=== PATIENT | female | born 1995 | race Caucasian/White ===

== ENCOUNTER 2023-12-02 08:12 | Day surgery (SDC) | payer OTHER, SELFPAY ==
--- OUTSIDE RECORDS SUMMARY | 2023-12-02 08:16 | XMS_ITS | Clinical Summary ---
Author Name Unknown Organization [facility] Address [address] [place] [address] Care Team Providers Care Cover Creaser Name Role Phone Unavailable Primary Care Provider Unavailabl e Source Comments Patient records contain information from all sites at [facility]. For routine questions regarding patient records, call [phone] during business hours, M-F 8:00 AM - 5:00 PM Central Time. Record requests for emergency care only can be directed to [phone] at any time.[facility] Allergies No known active allergies Medications Medication Sig Dispensed Refills Start Date End Date Status rizatriptan (MAXALT) 5 mg tablet Take 5 mg by mouth every 2 (two) hours as needed. 10/14/2021 Active albuterol 90 mcg/actuation inhaler INHALE 2 PUFFS BY MOUTH THREE TIMES DAILY FOR COUGH DIRECTED 03/09/2023 Active medroxyPROGESTERone (PROVERA) 10 mg tabletIndications:Ol igomenorrhea Take 1 tablet (10 mg total) by mouth daily for 10 days. 10 tablet 07/28/2023 Active Active Problems Problem Noted Date Diagnosed Date Pain Epigastric 07/28/2023 Oligomenorrhea 07/28/2023 Overview: Oligomenorrhea and acne, but no other biochemical evidence of hyperandrogenism in the past. TSH, total testosterone, SHBG, prolactin, and 17-OH progesterone all normal in the past. Day 3 FSH and estradiol also returned normal. We will also plan to day 21 progesterone to evaluate for ovulation, and this is scheduled. If this is not ovulatory, we will repeat it weekly until it is ovulatory. She does desire and has not conceived over the course of years without contraception, other than recently when she had a miscarriage. We can discuss options for fertility evaluation and treatment going forward once we have the progesterone results back. We would also discuss evaluation for male factor. Mass Uterus 07/28/2023 Overview: Thickening of the endometrium in the lower uterine segment noted on 2 prior ultrasounds, today the endometrium appears normal early in her cycle, but the endocervical canal appears thickened and diffusely heterogeneous and non- vascular. ECC was performed to further evaluate this. We will be in touch with her with results. \ Pain Left Lower Quadrant 07/28/2023 Overview: Exam is normal today and without tenderness. Testing for gonorrhea and Chlamydia was performed today. Ultrasound will be repeated on days 5-10 of her cycle to evaluate this.. Polycystic Ovary Syndrome 06/17/2022 Overview: Diagnosed by gynecology based upon oligomenorrhea and ovaries with multiple cysts on ultrasound. She also has acne but no hirsutism. Total testosterone and sex hormone binding globulin were normal when assessed in the past. Ovaries do not meet criteria for PCOS on ultrasound today. She has normal follicles but too many or a string of pearls appearance, and the ovaries are normal in size. Migraine Headache 07/04/2014 Adjustment Disorder With Anxious Mood 09/12/2010 Encounters Date Type Department Care Team Description 10/11/2023 3:15 PM GRAIN MILL WORKER - 10/11/2023 11:59 PM GRAIN MILL WORKER Hospital Encounter Department of Laboratory Medicine in [address] [address] Sushila Harp M.D. Oligomenorrhea Discharge Disposition: Home or Self Care 10/04/2023 12:50 PM GRAIN MILL WORKER - 10/04/2023 11:59 PM GRAIN MILL WORKER Hospital Encounter Department of Laboratory Medicine in [address] [address] Sushila Harp M.D. Oligomenorrhea Discharge Disposition: Home or Self Care 09/21/2023 8:30 AM GRAIN MILL WORKER Ancillary Procedure Department of Obstetrics and Gynecology in [place], [place] [address] [place] [address] Sushila Harp M.D. Mass Uterus Discharge Disposition: Home or Self Care 09/21/2023 8:30 AM GRAIN MILL WORKER Office Visit Department of Obstetrics and Gynecology in [place], [place] [address] [place] [address] Sushila Harp M.D. Mass Uterus (Primary Dx); Oligomenorrhea; Polycystic Ovary Syndrome Discharge Disposition: Home or Self Care 09/14/2023 3:50 PM GRAIN MILL WORKER - 09/14/2023 11:59 PM GRAIN MILL WORKER Hospital Encounter Department of Laboratory Medicine in [place], [place] [address] [place] [address] Sushila Harp M.D. Oligomenorrhea Discharge Disposition: Home or Self Care from Last 3 Months Immunizations Name Administration Dates Next Due 4vHPV (discontinued) 05/02/2008,01/02/2008,10/27 DTaP (Infanrix, [employer]) 12/04/1999,06/08/1996 DTaP / Hib 1995,1995,1995 H1N1 All Forms 07/10/2009 H1N1 Inj 07/10/2009 HepA Adult 01/05/2017 HepA Pediatric/Adolescent 07/22/2011 HepB Pediatric/Adolescent 1995,1995, 1995 Influenza (IM) Preservative Free 07/07/2011 Influenza TIV (IM) 07/16/2012, 1,06/23/2010,2008,06/05/2008,06/22/2007 Influenza, Seasonal, Injectable 07/16/20 12,06/23/2010,05/08/2009,2007,06/22/2007,09/29/2006 MCV4 (Menactra)(Discontinued) 04/06/2006 MCV4 (Menveo) 07/22/2011 MMR 12/04/1999,06/08/1996 OPV 06/08/1996, 6,1995,1994 Td Preservative Free (TENIVA C, DECAVAC) 01/05/2017 Tdap 04/06/2006 influenza vaccine quad (FLUZONE/FLUARIX) (6 months and older)(PF) 07/04/2014 Family History Medical History Relation Name Comments Hypertension Father Hypertension Maternal Grandmother Diabetes Mother Heart attack Mother Hyperlipidemia Mother Hypertension Mother Heart attack Mother's Brother 1 Heart attack Mother's Brother 2 Relation Name Status Comments Father Maternal Grandmother Mother Mother's Brother 1 Alive Mother's Brother 2 Alive Social History Tobacco Use Types Packs/Day Years Used Date Smoking Tobacco: Never Smokeless Tobacco: Never Tobacco Cessation:Counseling Given: Not Answered Alcohol Use Standard Drinks/Week Comments Yes 0 (1 standard drink = 0.6 oz pur e alcohol) occasional [employer] Utilities Answer Date Recorded In the past 12 months has th e [employer], gas, oil, or water [employer] threatened to shut off services in your home? No 09/16/2023 Exercise Vital Sign Answer Date Recorde d On average, how many days pe r week do you engage in moderate to strenuous exercise (like a brisk walk)? 6 days 09/16/2023 On average, how many minutes do you engage in exercise at this level? 40 min 09/16/2023 Hunger Vital Sign Answer Date Recorded Within the past 12 months, y ou worried that your food would run out before you got the money to buy more. Sometimes true Within the past 12 months, t he food you bought just didn't last and you didn't have money to get more. Sometimes true 08/2023 PRAPARE - Transportation Answer Date Re corded In the past 12 months, has l ack of transportation kept you from medical appointments or from getting medications? No 08/2023 In the past 12 months, has l ack of transportation kept you from meetings, work, or from getting things needed for daily living? No 09/16/2023 Nutrition Answer Date Recorded Nutrition: EVOO Fat Source Unknown 09/16 On average, how many serving s of fruits and vegetables do you eat per day (serving size is equal to 1 cup or approximately the size of a tennis ball)? 0-2 09/16/2023 Dental Answer Date Recorded Dental: Regular Dentist No 09/16/19 Employment Answer Date Recorded Employment status Employed and actively working without restrictions 09/16/2023 Housing Stability Answer Date Recorded What is your living situation today? I have a [facility] place to live 09/16/2023 Sex and Gender Information Value Date Recorded Sex Assigned at Female 09/16/2023 8:08 PM GRAIN MILL WORKER Gender Identity Female 09/16/2023 8:08 PM GRAIN MILL WORKER Sexual Orientation Straight 09/16/2023 8: 08 PM GRAIN MILL WORKER Last Filed Vital Signs Vital Sign Reading Time Taken Comments Blood Pressure 106/78 09/21/2023 8:20 AM GRAIN MILL WORKER Pulse - - Temperature - - Respiratory Rate - - Oxygen Saturation - - Inhaled Oxygen Concentration - - Weight 66.9 kg (147 lb 7.8 oz) 09/21/2023 8:20 A M GRAIN MILL WORKER Height 164 cm (5' 4.57) 07/28/2023 8:31 AM GRAIN MILL WORKER Body Mass Index 24.87 07/28/2023 8:31 AM GRAIN MILL WORKER Plan of Treatment Health Maintenance Due Date Last Done Comments HIV Screening 1995 Hepatitis C Screening 1995 Hepatitis B Vaccines (4 of 4 - 4-dose series) 1995 1995, 1995, 1995 COVID-19 Vaccine ( season) 2023 Influenza Vaccine (#1) 2023 4, 07/16/2012, 07/16/2012, Additional history exists Depression Screening (Annual PHQ-2) 08/16/2023 Cervical Cancer Screening 07/28/2026 07/28/2023 DTaP,Tdap,and Td Vaccines (8 - Td or Tdap) 01/05/2027 01/05/2017, 04/06/2006, 12/04/1999, Additional history exists HPV Vaccines Completed 05/02/2008, 12/14, 10/28/2007 Hepatitis A Vaccines Completed 01/05/2017, 07/22/20 11 Pneumococcal vaccine (0-64 years) Aged Out No longer eligible based on patient's age to complete this topic Procedures Procedure Name Priority Date/Time Associated Diagnosis Comments PROGESTERONE, S Routine 10/11/2023 3:24 PM GRAIN MILL WORKER Oligomenorrhea PROGESTERONE, S Routine 10/04/2023 12:56 PM GRAIN MILL WORKER Oligomenorrhea SURGICAL PATHOLOGY Routine 09/21/2023 9: 15 AM GRAIN MILL WORKER Mass Uterus US PELVIS TRANSVAGINAL RAD - Routine (most inpatients and all outpatients) 09/21/2023 8:56 AM GRAIN MILL WORKER Mass Uterus NV CURETTAGE ENDOCERVICAL Routine 09/21/2023 8:30 AM GRAIN MILL WORKER Mass Uterus ESTRADIOL, RAPID, S Routine 09/14/2023 3 :58 PM GRAIN MILL WORKER Oligomenorrhea FOLLICLE-STIM HORMONE (FSH), S Routine 09/14/2023 3:58 PM GRAIN MILL WORKER Oligomenorrhea THINPREP SCREEN HPV REFLEX Routine 07/28/2023 10:08 AM GRAIN MILL WORKER Pap Smear Examination from Last 3 Months or Most Recently Relevant to Health Maintenance Results * Progesterone Level (10/11/2023 3:24 PM GRAIN MILL WORKER) Only the most recent of2 resultswithin the time period is included. Progesterone, S 21 See Note* ng/mL 10/12/2023 1:15 PM GRAIN MILL WORKER DTL Comment: Reference intervals are central 90th % of healthy population. Follicular phase: <=0.89 ng/mL Ovulation: <=12 ng/mL Luteal phase: 1.8-24 ng/ml Post-menopausal: <0.20 ng/mL 1st Trimester: 11-44 ng/mL 2nd Trimester: 25-83 ng/mL 3rd Trimester: 58-214 ng/mL Blood (Blood, Venous) 10/11/2023 3:24 PM GRAIN MILL WORKER 10/12/2023 12:46 PM GRAIN MILL WORKER Sushila Harp M.D. LAB BLOOD ADD-O N [facility] [address] [place] [address], [facility] DTL [facility] [address] * Surgical Pathology (09/21/2023 9:15 AM GRAIN MILL WORKER) 09/27/2023 2:04 PM GRAIN MILL WORKER MKTO Report electronically signed by Ander Be MD 09/27/2023 2:04 PM GRAIN MILL WORKER MKTO Specimen Received A. Endocervical curettings cervix (REVISED) 09/27/2023 2:04 PM GRAIN MILL WORKER MKTO Comment: REVISED RESULTS ----PREVIOUSLY REPORTED ---- A. ??Endometrial biopsy, Flagged as: ?? (Reported 09/23/2023 10:10) Clinical History Uterine mass 2023 2:04 PM GRAIN MILL WORKER MKTO Gross Description Submitted as ??endocervix ??curettage are mccoy tissue fragments and mucoid debris filtering to 1.0 cm. ??ESB, one block. ?? BHC;pp 09/27/2023 2:04 PM GRAIN MILL WORKER MKTO Comment: REVISED RESULTS ----PREVIOUSLY REPORTED ---- Submitted as endometrium curettage are mccoy tissue fragments and mucoid debris filtering to 1.0 cm. ??ESB, one block. BHC;pp, Flagged as: ??(Reported 09/23/2023 10:10) Interpretation FINAL DIAGNOSIS REVISION DESCRIPTION: ?Report revised to correct specimen site from endometrium to cervix / endocervix. Underlining in the PDF report indicates revision. Endocervix, curettings: ??Proliferative endometrium. There is no endocervical tissue. 09/27/2023 2:04 PM GRAIN MILL WORKER MKTO Comment: REVISED RESULTS ----PREVIOUSLY REPORTED ---- FINAL DIAGNOSIS Endometrium, curettings: ??Proliferative endometrium., Flagged as: ??(Reported 09/23/2023 10:10) Tissue 09/21/2023 9:15 AM GRAIN MILL WORKER 09/22/2023 6:14 AM GRAIN MILL WORKER Sushila Harp M.D. LAB SURG PATH O RDERABLES [facility] [address] [place] [address], [facility] [address] [facility] [address] [place] [address] * US Pelvis Transvaginal (09/21/2023 8:56 AM GRAIN MILL WORKER) Anatomical Region Laterality Modality Pelvis, Ultrasound RST LOS, Ultrasound ARZ LOS, Ultrasound FLA LOS N/A Ultrasound Impressions 09/21/2023 6:49 PM GRAIN MILL WORKER Endocervix appears heterogeneous and thickened without discrete masses. ??Otherwise normal pelvic ultrasound. ??Endometrium appears thin and homogeneous. ??Exam performed late in the cycle for evaluation for polycystic ovarian syndrome, as follicles >10 mm are noted. Narrative 09/21/2023 6:49 PM GRAIN MILL WORKER EXAM: US PELVIS TRANSVAGINAL COMPARISON: TECHNIQUE: Transvaginal. Transvaginal exam performed to better visualize the uterus and/or adnexal regions. FINDINGS: Uterus: 3.1 cm x 3.8 cm x 7.1 cm. ??Endocervical canal appears diffusely heterogeneous with anechoic cystic appearing areas and echogenic areas. ??It appears thickened but avascular with no measurable masses identified Myometrium: Normal. Endometrium: Normal. Thickness: 4 mm Right ovary: Normal. ??Ovarian volume: 8 cc. ??11 subcentimeter (2-9 mm) follicles present within the ovary. A follicle >10 mm present. Left ovary: Normal. ??Ovarian volume: 9 cc. Intraperitoneal Fluid: None. Procedure Note Sushila Harp M.D. - 09/21/2023 EXAM: US PELVIS TRANSVAGINAL COMPARISON: TECHNIQUE: Transvaginal. Transvaginal exam performed to better visualizethe uterus and/or adnexal regions. FINDINGS: Uterus: 3.1 cm x 3.8 cm x 7.1 cm. Endocervical canal appears diffuselyheterogeneous with anechoic cystic appearing areas and echogenic areas.It appears thickened but avascular with no measurable masses identified Myometrium: Normal. Endometrium: Normal. Thickness: 4 mm Right ovary: Normal. Ovarian volume: 8 cc. 11 subcentimeter (2-9 mm)follicles present within the ovary. A follicle >10 mm present. Left ovary: Normal. Ovarian volume: 9 cc. Intraperitoneal Fluid: None. IMPRESSION: Endocervix appears heterogeneous and thickened without discrete masses.Otherwise normal pelvic ultrasound. Endometrium appears thin andhomogeneous. Exam performed late in the cycle for evaluation forpolycystic ovarian syndrome, as follicles >10 mm are noted. Sushila Harp M.D. IMG US PROCEDUR ES * NV CURETTAGE ENDOCERVICAL (09/21/2023 8:30 AM GRAIN MILL WORKER) Narrative MMODAL - 09/21/2023 8:30 AM GRAIN MILL WORKER Sushila Harp M.D. ? 09/21/2023 ??9:22 AM Colposcopy Performed by: Sushila Harp M.D. Authorized by: Sushila Harp M.D. ?? Care team members present 1. Sushila Harp M.D. 2. Marlys Carreon L.P.N. PROCEDURE DETAILS Procedure: ECC ?? Acetic Acid applied: no ?? Iodine (Lugol's) solution applied: no ?? Location of biopsies: cervix ?? CONSENT Consent obtained: verbal Consent given by: patient [employer] All relevant documentation and testing were reviewed and available. All required blood products, implants, devices and or special equipment were made available as applicable. Pre-procedure verification was conducted and the correct site was marked if required. A fire risk assessment was done as applicable. The procedural time-out to verify correct patient, correct side/site, and procedure was conducted prior to performing the procedure and confirmed in a procedural pause. PRE-PROCEDURE DETAILS Procedure purpose: diagnostic Indications: other (specify) Other indications: endocervical thickening on ultrasound Appropriate hand hygiene, gown, cap, mask, protective eyewear, sterile gloves, skin preparation, sterile drape, and strict aseptic technique were utilized as applicable for the procedure.: yes ?? SEDATION / ANESTHESIA Anesthesia method: none POST-PROCEDURE DETAILS ?? Complications: no apparent complications Comments This was an ECC only, no colposcopy was performed. Sushila Harp M.D. PROCEDURE/MINOR SURGICAL ORDERABLES MMODAL NA * Estradiol, Rapid, Immunoassay - (for rapid assessment of ovarian status) (09/14/2023 3:58 PM GRAIN MILL WORKER) Estradiol Rapid, Immunoassay, S 35 pg/mL 09/14/2023 8:36 PM GRAIN MILL WORKER MKTO Comment: Biotin has been identified by the iron worker as a potential interfering substance. Higher concentrations of biotin may be found in multivitamins, hair/nail supplements, and workout supplements. If the result does not match clinical observations, repeat testing after patient refrains from the use of supplements for at least 12 hours. ----REFERENCE VALUE---- Premenopausal: 15-350 pg/mL Postmenopausal: <10 pg/mL Estradiol concentrations vary widely throughout the menstrual cycle. Blood (Blood, Venous) 09/14/2023 3:58 PM GRAIN MILL WORKER 09/14/2023 7:48 PM GRAIN MILL WORKER Sushila Harp M.D. LAB BLOOD ADD-O N Performing Organization Address City/[facility] Co de Phone Number [facility] [address] [place] [address] [place] [address] * Follicle-Stimulating Hormone (FSH), Serum (09/14/2023 3:58 PM GRAIN MILL WORKER) Follicle-Stim Hormone (FSH), S 6.3 IU/L 09/15/2023 12:45 PM GRAIN MILL WORKER DTL Comment: ----REFERENCE VALUE---- Premenopausal: 2.9-14.6 IU/L (Follicular) 4.7-23.2 IU/L (Midcycle) 1.4-8.9 IU/L (Luteal) Postmenopausal: 16.0-157.0 IU/L Blood (Blood, Venous) 09/14/2023 3:58 PM GRAIN MILL WORKER 09/15/2023 12:13 PM GRAIN MILL WORKER Sushila Harp M.D. LAB BLOOD ADD-O N [facility] [address] [place] [address], [place] DTL [facility] [address] [place] [address] * ThinPrep Screen HPV Reflex (07/28/2023 10:08 AM GRAIN MILL WORKER) 08/02/2023 3:04 PM GRAIN MILL WORKER [facility] Report electronically signed by LINNEA Swift (ASCP) I verify that I have examined all relevant slides/materials for the specimen(s) and rendered or confirmed the diagnosis. 08/02/2023 3:04 PM GRAIN MILL WORKER [facility] Gross Description Received specimen in a ThinPrep vial. 08/02/2023 3:04 PM GRAIN MILL WORKER [facility] Pap Test Source Cervical/Endocervi elizabeth 08/02/2023 3:04 PM GRAIN MILL WORKER [facility] Clinical History routine 08/02/20 3:04 PM GRAIN MILL WORKER [facility] Menstrual Status(LMP, PM, ) lmp 08/02/2023 3:04 PM GRAIN MILL WORKER [facility] Hormone Therapy/Contracep tives None/Not known 08/02/2023 3:04 PM GRAIN MILL WORKER [facility] Interpretation Cervical/Endocervi elizabeth ??(ThinPrep): Satisfactory for Evaluation Partially obscuring inflammation Negative for Intraepithelial Lesion or Malignancy 08/02/2023 3:04 PM GRAIN MILL WORKER [facility] Thin Prep Vial (Cervix/Endocerv ix) 07/28/2023 10:08 AM GRAIN MILL WORKER 07/29/2023 10:57 AM GRAIN MILL WORKER Sushila Harp M.D. LAB PAP PATHDX ORDERABLES [facility] [address] [place] [address], [place] [facility] [address] [facility] [address] [place] [address] from Last 3 Months or Most Recently Relevant to Health Maintenance
--- OUTSIDE RECORDS SUMMARY | 2023-12-02 08:16 | XMS_ITS | Encounter Summary ---
Author Name Unknown Organization [facility] Address [address] [place] [address] Care Team Providers Care Airways Control Specialist Name Role Phone Unavailable Primary Care Provider Unavailabl e Encounter Details Date Type Department Care Team (Latest Contact Info) Description 10/11/2023 3:15 PM LENS CLEANER - 10/11/2023 11:59 PM LENS CLEANER Hospital Encounter Department of Laboratory Medicine in [place], [place] [address] [place] [address] Sushila Harp M.D. [address], [place] [phone] Oligomenorrhea Discharge Disposition: Home or Self Care Social History Tobacco Use Types Packs/Day Years Used Date Smoking Tobacco: Never Smokeless Tobacco: Never Alcohol Use Standard Drinks/Week Comments Yes 0 (1 standard drink = 0.6 oz pur e alcohol) occasional [facility] Utilities Answer Date Recorded In the past 12 months has [employer], gas, oil, or water [employer] threatened to shut off services in your [...] your living situation today? I have a [facility] place to live 09/16/2023 Sex and Gender Information Value Date Recorded Sex Assigned at Female 09/16/2023 8:08 PM LENS CLEANER Gender Identity Female 09/16/2023 8:08 PM LENS CLEANER Sexual Orientation Straight 09/16/2023 8: 08 PM LENS CLEANER documented as of this encounter Medications at Time of Discharge Medication Sig Dispensed Refills Start Date End Date albuterol 90 mcg/actuation inhaler INHALE 2 PUFFS BY MOUTH THREE TIMES DAILY FOR COUGH DIRECTED 03/09/2023 rizatriptan (MAXALT) 5 mg tablet Take 5 mg by mouth every 2 (two) hours as needed. 10/14/2021 documented as of this encounter Plan of Treatment Not on file documented as of this encounter Procedures Procedure Name Priority Date/Time Associated Diagnosis Comments PROGESTERONE, S Routine 10/11/2023 3:24 PM LENS CLEANER Oligomenorrhea documented in this encounter Results * Progesterone Level (10/11/2023 3:24 PM LENS CLEANER) Progesterone, S 21 See Note* ng/mL 10/12/2023 1:15 PM LENS CLEANER DTL Comment: Reference intervals are central 90th % of healthy population. Follicular phase: <=0.89 ng/mL Ovulation: <=12 ng/mL Luteal phase: 1.8-24 ng/ml Post-menopausal: <0.20 ng/mL 1st Trimester: 11-44 ng/mL 2nd Trimester: 25-83 ng/mL 3rd Trimester: 58-214 ng/mL Blood (Blood, Venous) 10/11/2023 3:24 PM LENS CLEANER 10/12/2023 12:46 PM LENS CLEANER Sushila Harp M.D. LAB BLOOD ADD-O N [place] [address] [place] [address], [facility] DTL [facility] [address] [place] [address] documented in this encounter Visit Diagnoses Diagnosis Oligomenorrhea documented in this encounter
--- OUTSIDE RECORDS SUMMARY | 2023-12-02 08:16 | XMS_ITS | Referral Summary ---
Author Name Unknown Organization [facility] Address [address] [place] [address] Care Team Providers Care Tape Editor Name Role Phone Unavailable Primary Care Provider Unavailabl e Source Comments Patient records contain information from all sites at [facility]. For routine questions regarding patient records, call [phone] during business hours, M-F 8:00 AM - 5:00 PM Central Time. Record requests for emergency care only can be directed to [phone] at any time.[facility] Encounters Date Type Department Care Team Description 10/11/2023 3:15 PM HIGH SCHOOL ADMISSIONS REPRESENTATIVE - 10/11/2023 11:59 PM HIGH SCHOOL ADMISSIONS REPRESENTATIVE Hospital Encounter Department of Laboratory Medicine in [address] [address] Sushila Harp M.D. Oligomenorrhea Discharge Disposition: Home or Self Care 10/04/2023 12:50 PM HIGH SCHOOL ADMISSIONS REPRESENTATIVE - 10/04/2023 11:59 PM HIGH SCHOOL ADMISSIONS REPRESENTATIVE Hospital Encounter Department of Laboratory Medicine in [address] [phone] Sushila Harp M.D. Oligomenorrhea Discharge Disposition: Home or Self Care 09/21/2023 8:30 AM HIGH SCHOOL ADMISSIONS REPRESENTATIVE Ancillary Procedure Department of Obstetrics and Gynecology in [address] [phone] Sushila Harp M.D. Mass Uterus Discharge Disposition: Home or Self Care 09/21/2023 8:30 AM HIGH SCHOOL ADMISSIONS REPRESENTATIVE Office Visit Department of Obstetrics and Gynecology in [place], [place] [address] [facility] [place] [address] Sushila Harp M.D. Mass Uterus (Primary Dx); Oligomenorrhea; Polycystic Ovary Syndrome Discharge Disposition: Home or Self Care 09/14/2023 3:50 PM HIGH SCHOOL ADMISSIONS REPRESENTATIVE - 09/14/2023 11:59 PM HIGH SCHOOL ADMISSIONS REPRESENTATIVE Hospital Encounter Department of Laboratory Medicine in [place], [place] [address] [facility] [place] [phone] Sushila Harp M.D. Oligomenorrhea Discharge Disposition: Home or Self Care from Last 3 Months Allergies No known active allergies Medications Medication [...] 07/04/2014 Adjustment Disorder With Anxious Mood 09/12/2010 Immunizations Name Administration Dates Next Due 4vHPV [...] quad (FLUZONE/FLUARIX) (6 months and older)(PF) 07/04/2014 Social History Tobacco Use Types Packs/Day Years Used Date Smoking Tobacco: Never Smokeless Tobacco: Never Tobacco Cessation:Counseling Given: Not Answered Alcohol Use Standard Drinks/Week Comments Yes 0 (1 standard drink = 0.6 oz pur e alcohol) occasional [facility] Utilities Answer Date Recorded In the past 12 months has th e [employer], gas, oil, or water [employer] threatened to shut off services in your [...] Date Recorded Dental: Regular Dentist No 09/16/19 24 Employment Answer Date Recorded Employment status Employed and actively working without restrictions 09/16/2023 Housing Stability Answer Date Recorded What is your living situation today? I have a [facility] place to live 09/16/2023 Sex and Gender Information Value Date Recorded Sex Assigned at Female 09/16/2023 8:08 PM HIGH SCHOOL ADMISSIONS REPRESENTATIVE Gender Identity Female 09/16/2023 8:08 PM HIGH SCHOOL ADMISSIONS REPRESENTATIVE Sexual Orientation Straight 09/16/2023 8: 08 PM HIGH SCHOOL ADMISSIONS REPRESENTATIVE Last Filed Vital Signs Vital Sign Reading Time Taken Comments Blood Pressure 106/78 09/21/2023 8:20 AM HIGH SCHOOL ADMISSIONS REPRESENTATIVE Pulse - - Temperature - - Respiratory Rate - - Oxygen Saturation - - Inhaled Oxygen Concentration - - Weight 66.9 kg (147 lb 7.8 oz) 09/21/2023 8:20 A M HIGH SCHOOL ADMISSIONS REPRESENTATIVE Height 164 cm (5' 4.57) 07/28/2023 8:31 AM HIGH SCHOOL ADMISSIONS REPRESENTATIVE Body Mass Index 24.87 07/28/2023 8:31 AM HIGH SCHOOL ADMISSIONS REPRESENTATIVE Plan of Treatment Not on file Procedures Procedure Name Priority Date/Time Associated Diagnosis Comments PROGESTERONE, S Routine 10/11/2023 3:24 PM HIGH SCHOOL ADMISSIONS REPRESENTATIVE Oligomenorrhea PROGESTERONE, S Routine 10/04/2023 12:56 PM HIGH SCHOOL ADMISSIONS REPRESENTATIVE Oligomenorrhea SURGICAL PATHOLOGY Routine 09/21/2023 9: 15 AM HIGH SCHOOL ADMISSIONS REPRESENTATIVE Mass Uterus US PELVIS TRANSVAGINAL RAD - Routine (most inpatients and all outpatients) 09/21/2023 8:56 AM HIGH SCHOOL ADMISSIONS REPRESENTATIVE Mass Uterus [place] CURETTAGE ENDOCERVICAL Routine 09/21/2023 8:30 AM HIGH SCHOOL ADMISSIONS REPRESENTATIVE Mass Uterus ESTRADIOL, RAPID, S Routine 09/14/2023 3 :58 PM HIGH SCHOOL ADMISSIONS REPRESENTATIVE Oligomenorrhea FOLLICLE-STIM HORMONE (FSH), S Routine 09/14/2023 3:58 PM HIGH SCHOOL ADMISSIONS REPRESENTATIVE Oligomenorrhea THINPREP SCREEN HPV REFLEX Routine 07/28/2023 10:08 AM HIGH SCHOOL ADMISSIONS REPRESENTATIVE Pap Smear Examination from Last 3 Months or Most Recently Relevant to Health Maintenance Results * Progesterone Level (10/11/2023 3:24 PM HIGH SCHOOL ADMISSIONS REPRESENTATIVE) Only the most recent of2 resultswithin the time period is included. Progesterone, S 21 See Note* ng/mL 10/12/2023 1:15 PM HIGH SCHOOL ADMISSIONS REPRESENTATIVE DTL Comment: Reference intervals are central 90th % of healthy population. Follicular phase: <=0.89 ng/mL Ovulation: <=12 ng/mL Luteal phase: 1.8-24 ng/ml Post-menopausal: <0.20 ng/mL 1st Trimester: 11-44 ng/mL 2nd Trimester: 25-83 ng/mL 3rd Trimester: 58-214 ng/mL Blood (Blood, Venous) 10/11/2023 3:24 PM HIGH SCHOOL ADMISSIONS REPRESENTATIVE 10/12/2023 12:46 PM HIGH SCHOOL ADMISSIONS REPRESENTATIVE Sushila Harp M.D. LAB BLOOD ADD-O N [facility] [address] [place] [address], [facility] [address] [place] [address] * Surgical Pathology (09/21/2023 9:15 AM HIGH SCHOOL ADMISSIONS REPRESENTATIVE) 09/27/2023 2:04 PM HIGH SCHOOL ADMISSIONS REPRESENTATIVE MKTO Report electronically signed by Ander Be MD 09/27/2023 2:04 PM HIGH SCHOOL ADMISSIONS REPRESENTATIVE MKTO Specimen Received A. Endocervical curettings cervix (REVISED) 09/27/2023 2:04 PM HIGH SCHOOL ADMISSIONS REPRESENTATIVE MKTO Comment: REVISED RESULTS ----PREVIOUSLY REPORTED ---- A. ??Endometrial biopsy, Flagged as: ?? (Reported 09/23/2023 10:10) Clinical History Uterine mass 2023 2:04 PM HIGH SCHOOL ADMISSIONS REPRESENTATIVE MKTO Gross Description Submitted as ??endocervix ??curettage are mccoy tissue fragments and mucoid debris filtering to 1.0 cm. ??ESB, one block. ?? BHC;pp 09/27/2023 2:04 PM HIGH SCHOOL ADMISSIONS REPRESENTATIVE MKTO Comment: REVISED RESULTS ----PREVIOUSLY REPORTED ---- [...] is no endocervical tissue. 09/27/2023 2:04 PM HIGH SCHOOL ADMISSIONS REPRESENTATIVE MKTO Comment: REVISED RESULTS ----PREVIOUSLY REPORTED ---- FINAL DIAGNOSIS Endometrium, curettings: ??Proliferative endometrium., Flagged as: ??(Reported 09/23/2023 10:10) Tissue 09/21/2023 9:15 AM HIGH SCHOOL ADMISSIONS REPRESENTATIVE 09/22/2023 6:14 AM HIGH SCHOOL ADMISSIONS REPRESENTATIVE Sushila Harp M.D. LAB SURG PATH O RDERABLES [facility] [address] [place] [address], [facility] MKTO [address] [place] [address] * US Pelvis Transvaginal (09/21/2023 8:56 AM HIGH SCHOOL ADMISSIONS REPRESENTATIVE) Anatomical Region Laterality Modality Pelvis, Ultrasound RST LOS, Ultrasound ARZ LOS, Ultrasound FLA LOS N/A Ultrasound Impressions 09/21/2023 6:49 PM HIGH SCHOOL ADMISSIONS REPRESENTATIVE Endocervix appears heterogeneous and thickened without discrete masses. ??Otherwise normal pelvic ultrasound. ??Endometrium appears thin and homogeneous. ??Exam performed late in the cycle for evaluation for polycystic ovarian syndrome, as follicles >10 mm are noted. Narrative 09/21/2023 6:49 PM HIGH SCHOOL ADMISSIONS REPRESENTATIVE EXAM: US PELVIS TRANSVAGINAL COMPARISON: TECHNIQUE: Transvaginal. [...] >10 mm are noted. Sushila Harp M.D. G US PROCEDUR ES * [place] CURETTAGE ENDOCERVICAL (09/21/2023 8:30 AM HIGH SCHOOL ADMISSIONS REPRESENTATIVE) Narrative MMODAL - 09/21/2023 8:30 AM HIGH SCHOOL ADMISSIONS REPRESENTATIVE Sushila Harp M.D. ? 09/21/2023 ??9:22 AM Colposcopy Performed by: Sushila Harp M.D. Authorized by: Sushila Harp M.D. ?? Care team members present 1. Sushila Harp M.D. 2. Marlys Carreon L.PPravin PROCEDURE DETAILS Procedure: ECC ?? Acetic Acid [...] performed. Sushila Harp M.D. PROCEDURE/MINOR SURGICAL ORDERABLES Performing Organization Address [facility] de Phone Number MMODAL NA * Estradiol, Rapid, Immunoassay - (for rapid assessment of ovarian status) (09/14/2023 3:58 PM HIGH SCHOOL ADMISSIONS REPRESENTATIVE) Estradiol Rapid, Immunoassay, S 35 pg/mL 09/14/2023 8:36 PM HIGH SCHOOL ADMISSIONS REPRESENTATIVE MKTO Comment: Biotin has been identified by the sign language instructor as a potential interfering substance. Higher concentrations [...] cycle. Blood (Blood, Venous) 09/14/2023 3:58 PM HIGH SCHOOL ADMISSIONS REPRESENTATIVE 09/14/2023 7:48 PM HIGH SCHOOL ADMISSIONS REPRESENTATIVE Sushila Harp M.D. LAB BLOOD ADD-O N Performing Organization Address [facility] Co de Phone Number [facility] [address] [place] [address], [place] MKTO [facility] [place] [address] [place] [address] * Follicle-Stimulating Hormone (FSH), Serum (09/14/2023 3:58 PM HIGH SCHOOL ADMISSIONS REPRESENTATIVE) Follicle-Stim Hormone (FSH), S 6.3 IU/L 09/15/2023 12:45 PM HIGH SCHOOL ADMISSIONS REPRESENTATIVE DTL Comment: ----REFERENCE VALUE---- Premenopausal: 2.9-14.6 IU/L (Follicular) 4.7-23.2 IU/L (Midcycle) 1.4-8.9 IU/L (Luteal) Postmenopausal: 16.0-157.0 IU/L Blood (Blood, Venous) 09/14/2023 3:58 PM HIGH SCHOOL ADMISSIONS REPRESENTATIVE 09/15/2023 12:13 PM HIGH SCHOOL ADMISSIONS REPRESENTATIVE Sushila Hapr M.D. LAB BLOOD ADD-O N [place] [address] [place] [address], [facility] [place] [address] [place] [address] * ThinPrep Screen HPV Reflex (07/28/2023 10:08 AM HIGH SCHOOL ADMISSIONS REPRESENTATIVE) 08/02/2023 3:04 PM HIGH SCHOOL ADMISSIONS REPRESENTATIVE [facility] Report electronically signed by LINNEA Swift (ASCP) I verify that I have examined all relevant slides/materials for the specimen(s) and rendered or confirmed the diagnosis. 08/02/2023 3:04 PM HIGH SCHOOL ADMISSIONS REPRESENTATIVE [facility] Gross Description Received specimen in a ThinPrep vial. 08/02/2023 3:04 PM HIGH SCHOOL ADMISSIONS REPRESENTATIVE [facility] Pap Test Source Cervical/Endocervi elizabeth 08/02/2023 3:04 PM HIGH SCHOOL ADMISSIONS REPRESENTATIVE [facility] Clinical History routine 08/02/20 3:04 PM HIGH SCHOOL ADMISSIONS REPRESENTATIVE [facility] Menstrual Status(LMP, PM, ) lmp 08/02/2023 3:04 PM HIGH SCHOOL ADMISSIONS REPRESENTATIVE [facility] Hormone Therapy/Contracep tives None/Not known 08/02/2023 3:04 PM HIGH SCHOOL ADMISSIONS REPRESENTATIVE [facility] Interpretation Cervical/Endocervi elizabeth ??(ThinPrep): Satisfactory for Evaluation Partially obscuring inflammation Negative for Intraepithelial Lesion or Malignancy 08/02/2023 3:04 PM HIGH SCHOOL ADMISSIONS REPRESENTATIVE [facility] Thin Prep Vial (Cervix/Endocerv ix) 07/28/2023 10:08 AM HIGH SCHOOL ADMISSIONS REPRESENTATIVE 07/29/2023 10:57 AM HIGH SCHOOL ADMISSIONS REPRESENTATIVE Sushila Harp M.D. LAB PAP PATHDX ORDERABLES Performing Organization Address [facility] Co de Phone Number [facility] [address] [place] [address], [place] [facility] [address] [address] from Last 3 Months or Most Recently Relevant to Health Maintenance
--- OUTSIDE RECORDS SUMMARY | 2023-12-02 08:16 | XMS_ITS | Encounter Summary ---
Author Name Unknown Organization [facility] Address [address] [place] [address] Care Team Providers Care Photo Journalist Name Role Phone Unavailable Primary Care Provider Unavailabl e Encounter Details Date Type Department Care Team (Latest Contact Info) Description 10/04/2023 12:50 PM ESCORT PATIENTS - 10/04/2023 11:59 PM ESCORT PATIENTS Hospital Encounter Department of Laboratory Medicine in [place], [place] [address] [place] [address] Sushila Harp M.D. [address], [place] [phone] Oligomenorrhea Discharge Disposition: Home or Self Care Social History Tobacco Use Types Packs/Day Years Used Date Smoking Tobacco: Never Smokeless Tobacco: Never Alcohol Use Standard Drinks/Week Comments Yes 0 (1 standard drink = 0.6 oz pur e alcohol) occasional [facility] Utilities Answer Date Recorded In the past 12 months has [employer], gas, oil, or water [employer] threatened to shut off services in your [...] your living situation today? I have a [facility] place to live 09/16/2023 Sex and Gender Information Value Date Recorded Sex Assigned at Female 09/16/2023 8:08 PM ESCORT PATIENTS Gender Identity Female 09/16/2023 8:08 PM ESCORT PATIENTS Sexual Orientation Straight 09/16/2023 8: 08 PM ESCORT PATIENTS documented as of this encounter Medications at [...] Date/Time Associated Diagnosis Comments PROGESTERONE, S Routine 10/04/2023 12:56 PM ESCORT PATIENTS Oligomenorrhea documented in this encounter Results * Progesterone Level (10/04/2023 12:56 PM ESCORT PATIENTS) Progesterone, S 1.4 See Note* ng/mL 10/05/2023 12:57 PM ESCORT PATIENTS DTL Comment: Reference intervals are central 90th % of healthy population. Follicular phase: <=0.89 ng/mL Ovulation: <=12 ng/mL Luteal phase: 1.8-24 ng/ml Post-menopausal: <0.20 ng/mL 1st Trimester: 11-44 ng/mL 2nd Trimester: 25-83 ng/mL 3rd Trimester: 58-214 ng/mL Blood (Blood, Venous) 10/04/2023 12:56 PM ESCORT PATIENTS 10/05/2023 12:25 PM ESCORT PATIENTS Sushila aHrp M.D. LAB BLOOD ADD-O N [facility] [address] [place] [address], [facility] DTL [facility] [address] [place] [address] documented in this encounter Visit Diagnoses Diagnosis Oligomenorrhea documented in this encounter
--- OUTSIDE RECORDS SUMMARY | 2023-12-02 08:16 | XMS_ITS ---
Author Name Unknown Organization [facility] Address [address] [place] [address] Care Team Providers Care Home Delivery Driver Name Role Phone Unavailable Unavailable Unavailable Surgery Details Not on file Complications Check Surgery Details section. Procedure Estimated Blood Loss Check Surgery Details section. Procedure Findings Check Surgery Details section. Procedure Specimens Taken Check Surgery Details section.
--- OUTSIDE RECORDS SUMMARY | 2023-12-02 08:17 | XMS_ITS | Encounter Summary ---
Author Name Unknown Organization [facility] Address [address] [place] [address] Care Team Providers Care Bookkeeping Manager Name Role Phone Unavailable Primary Care Provider Unavailabl e Reason for Referral * Outpatient (Routine) - Authorized Specialty Diagnoses / Procedures Referred By Contac t Referred To Contact Diagnoses Mass Uterus Procedures Colposcopy Jessie Clayton M.D. [address] [phone] [facility] Region Referral ID Status Reason Start Date Expiration Date V isits Requested Visits Authorized [id number] Authorized 09/21/2023 09/20/2024 1 1 LMER APPRENTICE Reason for Visit * Reason Comments F/u ultrasound results and discuss hyste roscopy * Outpatient (Routine) - Closed Specialty Diagnoses / Procedures Referred By Contac t Referred To Contact Obstetrics and Gynecology Diagnoses Mass Uterus Jessie Clayton M.D. [address] [place] [phone] [facility] Region Referral ID Status Reason Start Date Expiration Date Visits Re quested Visits Authorized [id number] Closed 08/31/2023 08/30/2026 1 1 Encounter Details Date Type Department Care Team ([facility] st Contact Info) Description 09/21/2023 8:30 AM EMBALMER APPRENTICE Office Visit Department of Obstetrics and Gynecology in [place], [place] [address] [facility] [place] [phone] Jessie Clayton M.D. [address] [facility] [place] [phone] Mass Uterus (Primary Dx); Oligomenorrhea; Polycystic Ovary Syndrome Discharge Disposition: Home or Self Care Social History Tobacco Use Types Packs/Day Years Used Date Smoking Tobacco: Never Smokeless Tobacco: Never Tobacco Cessation:Counseling Given: Not Answered Alcohol Use Standard Drinks/Week Comments Yes 0 (1 standard drink = 0.6 oz pur e alcohol) occasional [facility] Utilities Answer Date Recorded In the past 12 months has e [employer], gas, oil, or water [employer] threatened to shut off services in your [...] your living situation today? I have a [facility] place to live 09/16/2023 Sex and Gender Information Value Date Recorded Sex Assigned at Female 09/16/2023 8:08 PM EMBALMER APPRENTICE Gender Identity Female 09/16/2023 8:08 PM EMBALMER APPRENTICE Sexual Orientation Straight 09/16/2023 8: 08 PM EMBALMER APPRENTICE documented as of this encounter Last Filed Vital Signs Vital Sign Reading Time Taken Comments Blood Pressure 106/78 09/21/2023 8:20 AM EMBALMER APPRENTICE Pulse - - Temperature - - Respiratory Rate - - Oxygen Saturation - - Inhaled Oxygen Concentration - - Weight 66.9 kg (147 lb 7.8 oz) 09/21/2023 8:20 A M EMBALMER APPRENTICE Height - - Body Mass Index 24.87 07/28/2023 8:31 AM EMBALMER APPRENTICE documented in this encounter Progress Notes * Jessie Clayton M.D. - 09/21/2023 8:30 AM CST SUBJECTIVE BLANCHING MACHINE OPERATOR FOLLOW UP CHIEF COMPLAINT/REASON FOR VISIT Follow up of uterine mass and oligomenorrhea HISTORY OF PRESENT ILLNESS Magda is a 28 y.o. female who presents for follow up of uterine mass and oligomenorrhea. I initially saw her on 07/28/2023 for unpredictable menses since menarche. She can go up to 3 months without a period. When she has them, they are light at last 2 days. She does not bleed between periods. She has acne on her shoulders and back, and sometimes on her face, but she uses acne products on her face, which helps. No abnormal hair growth. Her most recent cycles have ranged 41-47 days. TSH, total testosterone, FSH and LH were normal on 06/04/2022, and prolactin, 17-OH progesterone, SHBG, and Hgb A1c were normal on 06/17/2022. TSH was normal again on 06/17/2023. Day#3 FSH and estradiol were n ormal on 09/14/2023. Pelvic US on 06/10/2022 showed endometrium: 12 mm in thickness. Abnormal cystic and solid mass in the low endometrial segment. Ovaries normal. The second US on 07/21/2023 showed endometrium, 8 mm in thickness. Cystic and solid focus in the lowendometrial segment similar to that noted on the previous study. No endometrial fluid. Left ovary measuring 3.6 x 2.8 x 2.8 cm. Multiple small follicles. 2.8 cm cyst with thickened wall, smooth externally and lobulated internally. No adnexal masses. Normal arterial and venous blood flow. Today, US shows normal appearing ovaries and thickening of the endocervical canal with diffuse heterogeneous appearance. She did have a recent miscarriage and quant HCG was followed down to 5. The patient's allergies and current medications were reviewed and updated as appropriate. SYSTEMS REVIEW All other systems reviewed and are negative. OBJECTIVE Vitals: 09/21/23 0820 BP: 106/78 Patient Position: Sitting Weight: 66.9 kg PHYSICAL EXAM Constitutional General: She is not in acute distress. Appearance: Normal appearance. She is well-developed. Exam conducted with a gummed tape press operator present. Genitourinary Urethral meatus normal. No lesions in the vagina. Right Labia: No tenderness, lesions or skin changes. Left Labia: No tenderness, lesions or skin changes. No vaginal erythema or ulceration. Cervix is nulliparous. No cervical lesion. Pelvic exam was performed with patient in the lithotomy position. HENT Head: Normocephalic and atraumatic. Eyes General: Vision grossly intact. Pulmonary Effort: Pulmonary effort is normal. No respiratory distress. Neurological Mental Status: She is alert. Mental status is at baseline. Skin Findings: No lesion or rash. Psychiatric Mood and Affect: Mood normal. Behavior: Behavior normal. ASSESSMENT / PLAN Magda Bardales is a 28 y.o. female who presents for follow up of oligomenorrhea and endocervical thickening. #1 Mass Uterus Overview: Thickening of the endometrium in the lower uterine segment noted on 2 prior ultrasounds, today the endometrium appears normal early in her cycle, but the endocervical canal appears thickened and diffusely heterogeneous and non- vascular. ECC was performed to further evaluate this. We will be in touch with her with results. \ Orders: - Obstetrics and Gynecology office visit (clinic) - Surgical Pathology - Colposcopy #2 Oligomenorrhea Overview: Oligomenorrhea and acne, but no other [...] We would also discuss evaluation for male fa ctor. Orders: - Progesterone Level; Future; Expected date: 10/04/2023 #3 Polycystic Ovary Syndrome Overview: Diagnosed by gynecology based upon oligomenorrhea [...] and the ovaries are normal in size. Followup: We will be in touch with results and to discuss a plan.. LMER APPRENTICE documented in this encounter Procedure Notes * Jessie Clayton M.D. - 09/21/2023 8:30 AM CSTAssociated Order(s): Colposcopy Post-Procedure Diagnose(s): Mass Uterus Colposcopy Performed by: Jessie Clayton M.D. Authorized by: Jessie Clayotn M.D. Care team members present 1. Jessie Clayton M.D. 2. Marlys Carreon L.PPravin PROCEDURE DETAILS Procedure: ECC Acetic Acid applied: no Iodine (Lugol's) solution applied: no Location of biopsies: cervix CONSENT Consent obtained: verbal Consent given by: [...] utilized as applicable for the procedure.: yes SEDATION / ANESTHESIA Anesthesia method: none POST-PROCEDURE DETAILS Complications: no apparent complications Comments This was an ECC only, no colposcopy was performed. BLANCHING MACHINE OPERATOR LMER APPRENTICE documented in this encounter Miscellaneous Notes * Addendum Note - Jessie Clayton M.D. - 09/21/2023 8:30 AM CSTAddended by: JESSIE CLAYTON on: 10/06/2023 05:57 PM Modules accepted: Orders LMER APPRENTICE documented in this encounter Plan of Treatment Not on file documented as of this encounter Procedures Procedure Name Priority Date/Time Associated Diagnosis Comments SURGICAL PATHOLOGY Routine 09/21/2023 9: 15 AM EMBALMER APPRENTICE Mass Uterus CT CURETTAGE ENDOCERVICAL Routine 09/21/2023 8:30 AM EMBALMER APPRENTICE Mass Uterus documented in this encounter Results * Progesterone Level (10/11/2023 3:24 PM EMBALMER APPRENTICE) Progesterone, S 21 See Note* ng/mL 10/12/2023 1:15 PM EMBALMER APPRENTICE DTL Comment: Reference intervals are central 90th % of healthy population. Follicular phase: <=0.89 ng/mL Ovulation: <=12 ng/mL Luteal phase: 1.8-24 ng/ml Post-menopausal: <0.20 ng/mL 1st Trimester: 11-44 ng/mL 2nd Trimester: 25-83 ng/mL 3rd Trimester: 58-214 ng/mL Blood (Blood, Venous) 10/11/2023 3:24 PM EMBALMER APPRENTICE 10/12/2023 12:46 PM EMBALMER APPRENTICE Jessie Clayton M.D. LAB BLOOD ADD-O N Performing Organization Address [facility] Co de Phone Number [facility] [address] [place] [address] * Progesterone Level (10/04/2023 12:56 PM EMBALMER APPRENTICE) Progesterone, S 1.4 See Note* ng/mL 10/05/2023 12:57 PM EMBALMER APPRENTICE DTL Comment: Reference intervals are central 90th % of healthy population. Follicular phase: <=0.89 ng/mL Ovulation: <=12 ng/mL Luteal phase: 1.8-24 ng/ml Post-menopausal: <0.20 ng/mL 1st Trimester: 11-44 ng/mL 2nd Trimester: 25-83 ng/mL 3rd Trimester: 58-214 ng/mL Blood (Blood, Venous) 10/04/2023 12:56 PM EMBALMER APPRENTICE 10/05/2023 12:25 PM EMBALMER APPRENTICE Jessie Clayton M.D. LAB BLOOD ADD-O N Performing Organization Address [facility] Co de Phone Number [facility] [address] [place], [place] [phone] [place] [address] [address] [place] [address] * Surgical Pathology (09/21/2023 9:15 AM EMBALMER APPRENTICE) 09/27/2023 2:04 PM EMBALMER APPRENTICE MKTO Report electronically signed by Ander Be MD 09/27/2023 2:04 PM EMBALMER APPRENTICE MKTO Specimen Received A. Endocervical curettings cervix (REVISED) 09/27/2023 2:04 PM EMBALMER APPRENTICE MKTO Comment: REVISED RESULTS ----PREVIOUSLY REPORTED ---- A. ??Endometrial biopsy, Flagged as: ?? (Reported 09/23/2023 10:10) Clinical History Uterine mass 2023 2:04 PM EMBALMER APPRENTICE MKTO Gross Description Submitted as ??endocervix ??curettage are mccoy tissue fragments and mucoid debris filtering to 1.0 cm. ??ESB, one block. ?? BHC;pp 09/27/2023 2:04 PM EMBALMER APPRENTICE MKTO Comment: REVISED RESULTS ----PREVIOUSLY REPORTED ---- [...] is no endocervical tissue. 09/27/2023 2:04 PM EMBALMER APPRENTICE MKTO Comment: REVISED RESULTS ----PREVIOUSLY REPORTED ---- FINAL DIAGNOSIS Endometrium, curettings: ??Proliferative endometrium., Flagged as: ??(Reported 09/23/2023 10:10) Tissue 09/21/2023 9:15 AM EMBALMER APPRENTICE 09/22/2023 6:14 AM EMBALMER APPRENTICE Jessie Clayton M.D. LAB SURG PATH O RDERABLES [facility] [place] [address], [facility] MKTO [address] [place] [address] * CT CURETTAGE ENDOCERVICAL (09/21/2023 8:30 AM EMBALMER APPRENTICE) Narrative MMODAL - 09/21/2023 8:30 AM EMBALMER APPRENTICE Jessie Clayton M.D. ? 09/21/2023 ??9:22 AM Colposcopy Performed by: Jessie Clayton M.D. Authorized by: Jessie Clayton M.D. ?? Care team members present 1. Jessie Clayton M.D. 2. Marlys Carreon L.PJulietteNJuliette PROCEDURE DETAILS Procedure: ECC ?? Acetic Acid [...] an ECC only, no colposcopy was performed. Jessie Clayton M.D. PROCEDURE/MINOR SURGICAL ORDERABLES MMODAL NA documented in this encounter Visit Diagnoses Diagnosis Mass Uterus- Primary Oligomenorrhea Polycystic Ovary Syndrome documented in this encounter
--- OUTSIDE RECORDS SUMMARY | 2023-12-02 08:17 | XMS_ITS | Encounter Summary ---
Author Name Unknown Organization [facility] Address [address] [place] [address] Care Team Providers Care Clay Molder Name Role Phone Unavailable Primary Care Provider Unavailabl e Encounter Details Date Type Department Care Team (Latest Contact Info) Description 09/14/2023 3:50 PM AUTOCAD TECHNICIAN - 09/14/2023 11:59 PM AUTOCAD TECHNICIAN Hospital Encounter Department of Laboratory Medicine in [place], [place] [address] [place] [address] Sushila Harp M.D. [address], [place] [phone] Oligomenorrhea Discharge Disposition: Home or Self Care Social History Tobacco Use Types Packs/Day Years Used Date Smoking Tobacco: Never Smokeless Tobacco: Never Alcohol Use Standard Drinks/Week Comments Yes 0 (1 standard drink = 0.6 oz pur e alcohol) occasional Nutrition Answer Date Recorded Nutrition: EVOO Fat Source Unknown 07/20 Nutrition: Servings of Fruits/Vegetables per Day Not on file 07/20/2023 Dental Answer Date Recorded Dental: Regular Dentist Unknown 07/20/20 23 Sex and Gender Information Value Date Recorded Sex Assigned at Female 09/16/2023 8:08 PM AUTOCAD TECHNICIAN Gender Identity Female 09/16/2023 8:08 PM AUTOCAD TECHNICIAN Sexual Orientation Straight 09/16/2023 8: 08 PM AUTOCAD TECHNICIAN documented as of this encounter Medications at [...] Procedure Name Priority Date/Time Associated Diagnosis Comments ESTRADIOL, RAPID, S Routine 09/14/2023 3 :58 PM AUTOCAD TECHNICIAN Oligomenorrhea FOLLICLE-STIM HORMONE (FSH), S Routine 09/14/2023 3:58 PM AUTOCAD TECHNICIAN Oligomenorrhea documented in this encounter Results * Estradiol, Rapid, Immunoassay - (for rapid assessment of ovarian status) (09/14/2023 3:58 PM AUTOCAD TECHNICIAN) Estradiol Rapid, Immunoassay, S 35 pg/mL 09/14/2023 8:36 PM AUTOCAD TECHNICIAN MKTO Comment: Biotin has been identified by the cnc maintenance mechanic as a potential interfering substance. Higher concentrations [...] cycle. Blood (Blood, Venous) 09/14/2023 3:58 PM AUTOCAD TECHNICIAN 09/14/2023 7:48 PM AUTOCAD TECHNICIAN Sushila Harp M.D. LAB BLOOD ADD-O N [facility] [place] [address], [facility] MKTO [facility] [place] [address] [place] [address] * Follicle-Stimulating Hormone (FSH), Serum (09/14/2023 3:58 PM AUTOCAD TECHNICIAN) Follicle-Stim Hormone (FSH), S 6.3 IU/L 09/15/2023 12:45 PM AUTOCAD TECHNICIAN DTL Comment: ----REFERENCE VALUE---- Premenopausal: 2.9-14.6 IU/L (Follicular) 4.7-23.2 IU/L (Midcycle) 1.4-8.9 IU/L (Luteal) Postmenopausal: 16.0-157.0 IU/L Blood (Blood, Venous) 09/14/2023 3:58 PM AUTOCAD TECHNICIAN 09/15/2023 12:13 PM AUTOCAD TECHNICIAN Sushila Harp M.D. LAB BLOOD ADD-O N [place] [address] [place] [address], [facility] DTL [address] [address] documented in this encounter Visit Diagnoses Diagnosis Oligomenorrhea documented in this encounter
--- OUTSIDE RECORDS SUMMARY | 2023-12-02 08:17 | XMS_ITS | Encounter Summary ---
Author Name Unknown Organization [facility] Address [address] [place] [address] Care Team Providers Care Global Recruiter Name Role Phone Unavailable Primary Care Provider Unavailabl e Reason for Referral * Outpatient (Routine) - Closed Specialty Diagnoses / Procedures Referred By Contac t Referred To Contact Obstetrics and Gynecology Diagnoses Mass Uterus Sushila Harp M.D. [address] [place] [phone] [facility] Region Referral ID Status Reason Start Date Expiration Date Visits Re quested Visits Authorized [id number] Closed 08/31/2023 08/30/2026 1 1 Scheduling Instructions Schedule 15 minute visit S TRAINING REPRESENTATIVE Encounter Details Date Type Department Care Team (Late st Contact Info) Description 08/31/2023 Orders Only Department of Obstetrics and Gynecology in [place], [place] [address] [place] [address] Sushila Harp M.D. [address] [phone] Mass Uterus (Primary Dx) Social History Tobacco Use Types Packs/Day Years Used Date Smoking Tobacco: Never Smokeless Tobacco: Never Alcohol Use Standard Drinks/Week Comments Yes 0 (1 standard drink = 0.6 oz pur e alcohol) occasional Nutrition Answer Date Recorded Nutrition: EVOO Fat Source Unknown 07/20 Nutrition: Servings of Fruits/Vegetables per Day Not on file 07/20/2023 Dental Answer Date Recorded Dental: Regular Dentist Unknown 07/20/20 Sex and Gender Information Value Date Recorded Sex Assigned at Female 09/16/2023 8:08 PM SALES TRAINING REPRESENTATIVE Gender Identity Female 09/16/2023 8:08 PM SALES TRAINING REPRESENTATIVE Sexual Orientation Straight 09/16/2023 8: 08 PM SALES TRAINING REPRESENTATIVE documented as of this encounter Plan of Treatment Scheduled Referrals Name Type Priority Associated Diagnoses Order Schedule Obstetrics and Gynecology office visit (clinic) Outpatient Referral Routine Mass Uterus Expected: 08/31/2023 (Approximate), Expires: 11/29/2024 documented as of this encounter Visit Diagnoses Diagnosis Mass Uterus- Primary documented in this encounter
--- OUTSIDE RECORDS SUMMARY | 2023-12-02 08:17 | XMS_ITS | Encounter Summary ---
Author Name Unknown Organization [facility] Address [address] [place] [address] Care Team Providers Care Assistant Laboratory Director Name Role Phone Unavailable Primary Care Provider Unavailabl e Reason for Visit * Outpatient (Routine) - Closed Specialty Diagnoses / Procedures Referred By Contac t Referred To Contact Diagnoses Mass Uterus Procedures US Pelvis Transvaginal Sushila Harp M.D. [address] [place] [phone] [facility] Region Referral ID Status Reason Start Date Expiration Date Visits Re quested Visits Authorized [id number] Closed 09/13/2023 09/12/2024 1 1 Encounter Details Date Type Department Care Team (Latest Contact Info) Description 09/21/2023 8:30 AM ENGINE ASSEMBLY SUPERVISOR Ancillary Procedure Department of Obstetrics and Gynecology in [address] [phone] Sushila Harp M.D. [address] [place] [phone] Mass Uterus Discharge Disposition: Home or Self Care Social History Tobacco Use Types Packs/Day Years Used Date Smoking Tobacco: Never Smokeless Tobacco: Never Alcohol Use Standard Drinks/Week Comments Yes 0 (1 standard drink = 0.6 oz pur e alcohol) occasional C Utilities Answer Date Recorded In the past 12 months has [employer], gas, oil, or water company threatened to shut off services in your [...] your living situation today? I have a [facility] to live 09/16/2023 Sex and Gender Information Value Date Recorded Sex Assigned at Female 09/16/2023 8:08 PM ENGINE ASSEMBLY SUPERVISOR Gender Identity Female 09/16/2023 8:08 PM ENGINE ASSEMBLY SUPERVISOR Sexual Orientation Straight 09/16/2023 8: 08 PM ENGINE ASSEMBLY SUPERVISOR documented as of this encounter Plan of Treatment Not on file documented as of this encounter Procedures Procedure Name Priority Date/Time Associated Diagnosis Comments US PELVIS TRANSVAGINAL RAD - Routine (most inpatients and all outpatients) 09/21/2023 8:56 AM ENGINE ASSEMBLY SUPERVISOR Mass Uterus documented in this encounter Results * US Pelvis Transvaginal (09/21/2023 8:56 AM ENGINE ASSEMBLY SUPERVISOR) Anatomical Region Laterality Modality Pelvis, Ultrasound RST LOS, Ultrasound ARZ LOS, Ultrasound FLA LOS N/A Ultrasound Impressions 09/21/2023 6:49 PM ENGINE ASSEMBLY SUPERVISOR Endocervix appears heterogeneous and thickened without discrete masses. ??Otherwise normal pelvic ultrasound. ??Endometrium appears thin and homogeneous. ??Exam performed late in the cycle for evaluation for polycystic ovarian syndrome, as follicles >10 mm are noted. Narrative 09/21/2023 6:49 PM ENGINE ASSEMBLY SUPERVISOR EXAM: US PELVIS TRANSVAGINAL COMPARISON: TECHNIQUE: Transvaginal. [...] as follicles >10 mm are noted. Sushila CAMARGO US PROCEDUR ES documented in this encounter Visit Diagnoses Diagnosis Mass Uterus documented in this encounter
[2023-12-02 08:23] VITALS: BP 131/84; PULSE 76; RESP 16; TEMP 36.7; O2SAT 98; BMI 25.9
[2023-12-02 08:40] LABS: Ur HCG Qualitative* Negative (Negative)
[2023-12-02] MEDS: LACTATED RINGERS 1000 ML 1,000 ML 100 ML IV (08:45)
[2023-12-02] MEDS: SODIUM CHLORIDE 0.9 % (FLUSH) 10 ML SYRINGE IVF (08:45)
--- NOTE | 2023-12-02 10:20 | W.PM.H&PU ---
History & Physical Update History & Physical Update H&P Reviewed and patient assessed: No changes noted
[2023-12-02] MEDS: LIDOCAINE 1% MDV 20 ML INJECTION (10:51)
[2023-12-02] MEDS: SILVER NITRATE APPLICATOR 1 EACH STICK..EA. TOPICAL (10:55)
--- NOTE | 2023-12-02 11:07 | W.PM.GYNPROC ---
Procedure Note Date of procedure: 12/02/23 Will [facility] bill your pro fee for this procedure?: Yes Pre-op diagnosis: Endocervical lesion on pelvis ultrasound Post-op diagnosis: Normal endocervix Procedure: Hysteroscopy with endometrial and endocervical curettage Anesthesia: MAC and local Complications: None Surgeon: Babs Ruiz MD Estimated blood loss (mL): 5 Urine Output (mL): 150 Pathology: specimen obtained, sent to pathology (Endometrial and endocervical curettage) Condition: stable Disposition: same day Findings: 1. Pelvic exam under anesthesia shows normal appearance to vulvar, vagina and cervix. Uterus was soft, nontender, mobile, midposition, and of normal texture. There were no palpable adnexal masses or tenderness. 2. Upon hysteroscopy, the endometrial cavity was normal in shape and the endometrium appeared regular, aside from disruptions likely caused by the uterine sound. These were removed with the hysteroscope. The endocervix did exhibit a small red patch near the upper posterior portion, but it was not necessarily abnormal in appearance, appearing with the usual undulation and variation in color of endocervical tissues. Saline deficit 125 mL Procedure Description: Procedure in detail: Patient was taken to the operating room with IV running. She was positioned in dorsal lithotomy position with her legs fully supported in Yellofin stirrups. Monitored anesthesia care was administered. She was prepped and draped in the usual sterile fashion. Exam under anesthesia was performed for the above-noted findings. Speculum was inserted. Cervix visualized and grasped along the anterior lip with a single-tooth tenaculum. Cervix was serially dilated to accommodate the TRUCLEAR hysteroscope. This was assembled with saline inflow and outflow in place. The line was flushed of bubbles. The hysteroscope was advanced through the cervix into the endometrial cavity for the above noted findings. The tissue morcellator was then inserted through the operating channel. Window lock was performed. Under direct visualization, the disrupted endometrium was removed with the soft tissue morcellator. There was patch of reddened apparent endocervical epithelium at the posterior upper endocervix, perhaps 1 cm in greatest dimension, which was removed with the soft tissue morcellator. Thereafter, the majority of the endocervix was circumferentially curetted with the hysteroscope. Pictures were taken to document normal appearance. The hysteroscope and morcellator were then removed from the uterus. Tenaculum was removed from the anterior lip of cervix. Hemostasis was achieved with silver nitrate. Patient tolerated procedure well. She was taken to recovery area in stable condition.
[2023-12-02 11:08] VITALS: BP 101/63; PULSE 73; RESP 16; TEMP 36.4; O2SAT 96
--- NOTE | 2023-12-02 11:12 | W.ANESCHARGE ---
Anesthesia Charges Start Date/Time Anesthesia Start Date: 12/02/23 Anesthesia Start Time: 10:25 Stop Date/Time Anesthesia Stop Date: 12/02/23 Anesthesia Stop Time: 11:10
[2023-12-02 11:15] VITALS: BP 113/77; PULSE 74; RESP 16; O2SAT 95
--- NOTE | 2023-12-02 11:24 | W.ANESCHARGE ---
Anesthesia Charges Start Date/Time Anesthesia Start Date: 12/02/23 Anesthesia Start Time: 10:25 Stop Date/Time Anesthesia Stop Date: 12/02/23 Anesthesia Stop Time: 11:10
[2023-12-02 11:30] VITALS: BP 121/80; PULSE 75; RESP 16; O2SAT 96
[2023-12-02 11:45] VITALS: BP 120/83; PULSE 78; RESP 16; O2SAT 100
== END 2023-12-02 12:36 | disposition home or self-care (01) ==
PROVIDERS: Obstetrics & Gynecology; Visit Provider Obstetrics & Gynecology
PROC: 0UDB8ZZ Extraction of Endometrium, Via Natural or Artificial Opening Endoscopic (ICD-10-PCS; CPT 58558; principal; 2023-12-02 09:30)
DX: R93.89 Abnormal findings on diagnostic imaging of other specified body structures (principal); N92.6 Irregular menstruation, unspecified
CPT/HCPCS: 58558; 00952; 81025; 88305; A9270; J1100; J1885; J2250; J2405; J2704; J3010; J7120

== ENCOUNTER 2023-12-17 09:22 | Outpatient (CLI) | payer OTHER, SELFPAY ==
--- OUTSIDE RECORDS SUMMARY | 2023-12-17 09:34 | XMS_ITS | Encounter Summary ---
Author Name Unknown Organization [facility] Address [address] [place] [address] Care Team Providers Care X Ray Equipment Mechanic Name Role Phone Unavailable Primary Care Provider Unavailabl e Encounter Details Date Type Department Care Team (Latest Contact Info) Description 10/11/2023 3:15 PM RAIL OPERATOR - 10/11/2023 11:59 PM RAIL OPERATOR Hospital Encounter Department of Laboratory Medicine in [place], [place] [address] [place] [address] Sushila Harp M.D. [address], [place] [phone] Oligomenorrhea Discharge Disposition: Home or Self Care Social History Tobacco Use Types Packs/Day Years Used Date Smoking Tobacco: Never Smokeless Tobacco: Never Alcohol Use Standard Drinks/Week Comments Yes 0 (1 standard drink = 0.6 oz pur e alcohol) occasional [facility] Utilities Answer Date Recorded In the past 12 months has [employer], gas, oil, or water [employer] threatened to shut off services in [...] your living situation today? I have a [facility] place to live 09/16/2023 Sex and Gender Information Value Date Recorded Sex Assigned at Female 09/16/2023 8:08 PM RAIL OPERATOR Gender Identity Female 09/16/2023 8:08 PM RAIL OPERATOR Sexual Orientation Straight 09/16/2023 8: 08 PM RAIL OPERATOR documented as of this encounter Medications at [...] Comments PROGESTERONE, S Routine 10/11/2023 3:24 PM RAIL OPERATOR Oligomenorrhea documented in this encounter Results * Progesterone Level (10/11/2023 3:24 PM RAIL OPERATOR) Progesterone, S 21 See Note* ng/mL 10/12/2023 1:15 PM RAIL OPERATOR DTL Comment: Reference intervals are central 90th % of healthy population. Follicular phase: <=0.89 ng/mL Ovulation: <=12 ng/mL Luteal phase: 1.8-24 ng/ml Post-menopausal: <0.20 ng/mL 1st Trimester: 11-44 ng/mL 2nd Trimester: 25-83 ng/mL 3rd Trimester: 58-214 ng/mL Blood (Blood, Venous) 10/11/2023 3:24 PM RAIL OPERATOR 10/12/2023 12:46 PM RAIL OPERATOR Sushila Harp M.D. LAB BLOOD ADD-O N [place] [address] [place] [address], [facility] DTL [facility] [address] [place] [address] documented in this encounter Visit Diagnoses Diagnosis Oligomenorrhea documented in this encounter
--- OUTSIDE RECORDS SUMMARY | 2023-12-17 09:34 | XMS_ITS | Encounter Summary ---
Author Name Unknown Organization [facility] Address [address] [place] [address] Care Team Providers Care Brewery Technician Name Role Phone Unavailable Primary Care Provider Unavailabl e Encounter Details Date Type Department Care Team (Latest Contact Info) Description 09/14/2023 3:50 PM SHIPPING LEAD PERSON - 09/14/2023 11:59 PM SHIPPING LEAD PERSON Hospital Encounter Department of Laboratory Medicine in [place], [place] [address] [place] [address] Sushila Harp M.D. [address], [place] [address] Oligomenorrhea Discharge Disposition: Home or Self Care [...] Sex Assigned at Female 09/16/2023 8:08 PM SHIPPING LEAD PERSON Gender Identity Female 09/16/2023 8:08 PM SHIPPING LEAD PERSON Sexual Orientation Straight 09/16/2023 8: 08 PM SHIPPING LEAD PERSON documented as of this encounter Medications at [...] RAPID, S Routine 09/14/2023 3 :58 PM SHIPPING LEAD PERSON Oligomenorrhea FOLLICLE-STIM HORMONE (FSH), S Routine 09/14/2023 3:58 PM SHIPPING LEAD PERSON Oligomenorrhea documented in this encounter Results * Estradiol, Rapid, Immunoassay - (for rapid assessment of ovarian status) (09/14/2023 3:58 PM SHIPPING LEAD PERSON) Estradiol Rapid, Immunoassay, S 35 pg/mL 09/14/2023 8:36 PM SHIPPING LEAD PERSON MKTO Comment: Biotin has been identified by the dive superintendent as a potential interfering substance. Higher concentrations [...] cycle. Blood (Blood, Venous) 09/14/2023 3:58 PM SHIPPING LEAD PERSON 09/14/2023 7:48 PM SHIPPING LEAD PERSON Sushila Harp M.D. LAB BLOOD ADD-O N [facility] [place] [address], [facility] MKTO [facility] [place] [address] [place] [address] * Follicle-Stimulating Hormone (FSH), Serum (09/14/2023 3:58 PM SHIPPING LEAD PERSON) Follicle-Stim Hormone (FSH), S 6.3 IU/L 09/15/2023 12:45 PM SHIPPING LEAD PERSON DTL Comment: ----REFERENCE VALUE---- Premenopausal: 2.9-14.6 IU/L (Follicular) 4.7-23.2 IU/L (Midcycle) 1.4-8.9 IU/L (Luteal) Postmenopausal: 16.0-157.0 IU/L Blood (Blood, Venous) 09/14/2023 3:58 PM SHIPPING LEAD PERSON 09/15/2023 12:13 PM SHIPPING LEAD PERSON Sushila Harp M.D. LAB BLOOD ADD-O N [place] [address] [place] [address], [facility] DTL [address] [address] documented in this encounter Visit Diagnoses Diagnosis Oligomenorrhea documented in this encounter
--- OUTSIDE RECORDS SUMMARY | 2023-12-17 09:34 | XMS_ITS ---
Author Name Unknown Organization [facility] Address [address] [place] [address] Care Team Providers Care Photogravure Press Operator Name Role Phone Unavailable Unavailable Unavailable Surgery Details Not on file Complications Check Surgery Details section. Procedure Estimated Blood Loss Check Surgery Details section. Procedure Findings Check Surgery Details section. Procedure Specimens Taken Check Surgery Details section.
--- OUTSIDE RECORDS SUMMARY | 2023-12-17 09:34 | XMS_ITS | Encounter Summary ---
Author Name Unknown Organization [facility] Address [address] [place] [address] Care Team Providers Care Derrick Boat Lever Operator Name Role Phone Unavailable Primary Care Provider Unavailabl e Encounter Details Date Type Department Care Team (Latest Contact Info) Description 10/04/2023 12:50 PM MECHANICAL CAR CHECKER - 10/04/2023 11:59 PM MECHANICAL CAR CHECKER Hospital Encounter Department of Laboratory Medicine in [place], [place] [address] [place] [address] Sushila Harp M.D. [address], [place] [phone] Oligomenorrhea Discharge Disposition: Home or Self Care Social History Tobacco Use Types Packs/Day Years Used Date Smoking Tobacco: Never Smokeless Tobacco: Never Alcohol Use Standard Drinks/Week Comments Yes 0 (1 standard drink = 0.6 oz pur e alcohol) occasional [facility] Utilities Answer Date Recorded In the past 12 months has [employer], gas, oil, or water [employer] threatened to shut off services in your [...] your living situation today? I have a [facility] place to live 09/16/2023 Sex and Gender Information Value Date Recorded Sex Assigned at Female 09/16/2023 8:08 PM MECHANICAL CAR CHECKER Gender Identity Female 09/16/2023 8:08 PM MECHANICAL CAR CHECKER Sexual Orientation Straight 09/16/2023 8: 08 PM MECHANICAL CAR CHECKER documented as of this encounter Medications at [...] Comments PROGESTERONE, S Routine 10/04/2023 12:56 PM MECHANICAL CAR CHECKER Oligomenorrhea documented in this encounter Results * Progesterone Level (10/04/2023 12:56 PM MECHANICAL CAR CHECKER) Progesterone, S 1.4 See Note* ng/mL 10/05/2023 12:57 PM MECHANICAL CAR CHECKER DTL Comment: Reference intervals are central 90th % of healthy population. Follicular phase: <=0.89 ng/mL Ovulation: <=12 ng/mL Luteal phase: 1.8-24 ng/ml Post-menopausal: <0.20 ng/mL 1st Trimester: 11-44 ng/mL 2nd Trimester: 25-83 ng/mL 3rd Trimester: 58-214 ng/mL Blood (Blood, Venous) 10/04/2023 12:56 PM MECHANICAL CAR CHECKER 10/05/2023 12:25 PM MECHANICAL CAR CHECKER Sushila Harp M.D. LAB BLOOD ADD-O N [facility] [address] [place] [address], [facility] DTL [facility] [address] [place] [address] documented in this encounter Visit Diagnoses Diagnosis Oligomenorrhea documented in this encounter
--- OUTSIDE RECORDS SUMMARY | 2023-12-17 09:34 | XMS_ITS | Referral Summary ---
Author Name Unknown Organization [facility] Address [address] [place] [address] Care Team Providers Care Pottery Decoration Designer Name Role Phone Unavailable Primary Care Provider Unavailabl e Source Comments Patient records contain information from all sites at [facility]. For routine questions regarding patient records, call [phone] during business hours, M-F 8:00 AM - 5:00 PM Central Time. Record requests for emergency care only can be directed to [phone] at any time.[facility] Encounters Date Type Department Care Team Description 10/11/2023 3:15 PM MANUAL WRITER - 10/11/2023 11:59 PM MANUAL WRITER Hospital Encounter Department of Laboratory Medicine in [address] [address] Sushila Harp M.D. Oligomenorrhea Discharge Disposition: Home or Self Care 10/04/2023 12:50 PM MANUAL WRITER - 10/04/2023 11:59 PM MANUAL WRITER Hospital Encounter Department of Laboratory Medicine in [address] [address] Sushila Harp M.D. Oligomenorrhea Discharge Disposition: Home or Self Care 09/21/2023 8:30 AM MANUAL WRITER Ancillary Procedure Department of Obstetrics and Gynecology in [address] [address] Sushila Harp M.D. Mass Uterus Discharge Disposition: Home or Self Care 09/21/2023 8:30 AM MANUAL WRITER Office Visit Department of Obstetrics and Gynecology in [place], [place] [address] [facility] [address] Sushila Harp M.D. Mass Uterus (Primary Dx); Oligomenorrhea; Polycystic Ovary Syndrome Discharge Disposition: Home or Self Care from [...] = 0.6 oz pur e alcohol) occasional [facility] Utilities Answer Date Recorded In the past 12 months has e [employer], gas, oil, or water company threatened to [...] today? I have a [facility] place to live 09/16/2023 Sex and Gender Information Value Date Recorded Sex Assigned at Female 09/16/2023 8:08 PM MANUAL WRITER Gender Identity Female 09/16/2023 8:08 PM MANUAL WRITER Sexual Orientation Straight 09/16/2023 8: 08 PM MANUAL WRITER Last Filed Vital Signs Vital Sign Reading Time Taken Comments Blood Pressure 106/78 09/21/2023 8:20 AM MANUAL WRITER Pulse - - Temperature - - Respiratory Rate - - Oxygen Saturation - - Inhaled Oxygen Concentration - - Weight 66.9 kg (147 lb 7.8 oz) 09/21/2023 8:20 A M MANUAL WRITER Height 164 cm (5' 4.57) 07/28/2023 8:31 AM MANUAL WRITER Body Mass Index 24.87 07/28/2023 8:31 AM MANUAL WRITER Plan of Treatment Not on file Procedures Procedure Name Priority Date/Time Associated Diagnosis Comments PROGESTERONE, S Routine 10/11/2023 3:24 PM MANUAL WRITER Oligomenorrhea PROGESTERONE, S Routine 10/04/2023 12:56 PM MANUAL WRITER Oligomenorrhea SURGICAL PATHOLOGY Routine 09/21/2023 9: 15 AM MANUAL WRITER Mass Uterus US PELVIS TRANSVAGINAL RAD - Routine (most inpatients and all outpatients) 09/21/2023 8:56 AM MANUAL WRITER Mass Uterus OR CURETTAGE ENDOCERVICAL Routine 09/21/2023 8:30 AM MANUAL WRITER Mass Uterus THINPREP SCREEN HPV REFLEX Routine 07/28/2023 10:08 AM MANUAL WRITER Pap Smear Examination from Last 3 Months or Most Recently Relevant to Health Maintenance Results * Progesterone Level (10/11/2023 3:24 PM MANUAL WRITER) Only the most recent of2 resultswithin the time period is included. Progesterone, S 21 See Note* ng/mL 10/12/2023 1:15 PM MANUAL WRITER DTL Comment: Reference intervals are central 90th % of healthy population. Follicular phase: <=0.89 ng/mL Ovulation: <=12 ng/mL Luteal phase: 1.8-24 ng/ml Post-menopausal: <0.20 ng/mL 1st Trimester: 11-44 ng/mL 2nd Trimester: 25-83 ng/mL 3rd Trimester: 58-214 ng/mL Blood (Blood, Venous) 10/11/2023 3:24 PM MANUAL WRITER 10/12/2023 12:46 PM MANUAL WRITER Sushila Harp M.D. LAB BLOOD ADD-O N [facility] [address] [place] [address], [place] DTL [facility] [address] [place] [address] * Surgical Pathology (09/21/2023 9:15 AM MANUAL WRITER) 09/27/2023 2:04 PM MANUAL WRITER MKTO Report electronically signed by Ander Be MD 09/27/2023 2:04 PM MANUAL WRITER MKTO Specimen Received A. Endocervical curettings cervix (REVISED) 09/27/2023 2:04 PM MANUAL WRITER MKTO Comment: REVISED RESULTS ----PREVIOUSLY REPORTED ---- A. ??Endometrial biopsy, Flagged as: ?? (Reported 09/23/2023 10:10) Clinical History Uterine mass 2023 2:04 PM MANUAL WRITER MKTO Gross Description Submitted as ??endocervix ??curettage are mccoy tissue fragments and mucoid debris filtering to 1.0 cm. ??ESB, one block. ?? BHC;pp 09/27/2023 2:04 PM MANUAL WRITER MKTO Comment: REVISED RESULTS ----PREVIOUSLY REPORTED ---- [...] is no endocervical tissue. 09/27/2023 2:04 PM MANUAL WRITER MKTO Comment: REVISED RESULTS ----PREVIOUSLY REPORTED ---- FINAL DIAGNOSIS Endometrium, curettings: ??Proliferative endometrium., Flagged as: ??(Reported 09/23/2023 10:10) Tissue 09/21/2023 9:15 AM MANUAL WRITER 09/22/2023 6:14 AM MANUAL WRITER Sushila Harp M.D. LAB SURG PATH O RDERABLES [facility] [address] [place] [address], [place] MKTO [address] [facility] [address] [place] [address] * US Pelvis Transvaginal (09/21/2023 8:56 AM MANUAL WRITER) Anatomical Region Laterality Modality Pelvis, Ultrasound RST LOS, Ultrasound ARZ LOS, Ultrasound FLA LOS N/A Ultrasound Impressions 09/21/2023 6:49 PM MANUAL WRITER Endocervix appears heterogeneous and thickened without discrete masses. ??Otherwise normal pelvic ultrasound. ??Endometrium appears thin and homogeneous. ??Exam performed late in the cycle for evaluation for polycystic ovarian syndrome, as follicles >10 mm are noted. Narrative 09/21/2023 6:49 PM MANUAL WRITER EXAM: US PELVIS TRANSVAGINAL COMPARISON: TECHNIQUE: Transvaginal. [...] Harp M.D. G US PROCEDUR ES * OR CURETTAGE ENDOCERVICAL (09/21/2023 8:30 AM MANUAL WRITER) Narrative MMODAL - 09/21/2023 8:30 AM MANUAL WRITER Sushila Harp M.D. ? 09/21/2023 ??9:22 AM Colposcopy Performed by: Sushila Harp M.D. Authorized by: Sushila Harp M.D. ?? Care team members present 1. Sushila Harp M.D. 2. Marlys Carreon, Juan PabloPPravin PROCEDURE DETAILS Procedure: ECC ?? Acetic Acid [...] ECC only, no colposcopy was performed. Sushila Hrap M.D. PROCEDURE/MINOR SURGICAL ORDERABLES Performing Organization Address City/[facility] Co de Phone Number MMODAL NA * ThinPrep Screen HPV Reflex (07/28/2023 10:08 AM MANUAL WRITER) 08/02/2023 3:04 PM MANUAL WRITER HKCY Report electronically signed by LINNEA Swift (ASCP) I verify that I have examined all relevant slides/materials for the specimen(s) and rendered or confirmed the diagnosis. 08/02/2023 3:04 PM MANUAL WRITER HKCY Gross Description Received specimen in a ThinPrep vial. 08/02/2023 3:04 PM MANUAL WRITER HKCY Pap Test Source Cervical/Endocervi elizabeth 08/02/2023 3:04 PM MANUAL WRITER HKCY Clinical History routine 08/02/20 3:04 PM MANUAL WRITER HKCY Menstrual Status(LMP, PM, ) lmp 08/02/2023 3:04 PM MANUAL WRITER HKCY Hormone Therapy/Contracep tives None/Not known 08/02/2023 3:04 PM MANUAL WRITER HKCY Interpretation Cervical/Endocervi elizabeth ??(ThinPrep): Satisfactory for Evaluation Partially obscuring inflammation Negative for Intraepithelial Lesion or Malignancy 08/02/2023 3:04 PM MANUAL WRITER HKCY Thin Prep Vial (Cervix/Endocerv ix) 07/28/2023 10:08 AM MANUAL WRITER 07/29/2023 10:57 AM MANUAL WRITER Sushila Harp M.D. LAB PAP PATHDX ORDERABLES [facility] [address] [place] [address], [place] HKCY [address] [address] from Last 3 Months or Most Recently Relevant to Health Maintenance
--- OUTSIDE RECORDS SUMMARY | 2023-12-17 09:34 | XMS_ITS | Encounter Summary ---
Author Name Unknown Organization [facility] Address [address] [place] [address] Care Team Providers Care Office Machine Mechanic Name Role Phone Unavailable Primary Care Provider Unavailabl e Reason for Visit * Outpatient (Routine) - Closed Specialty Diagnoses / Procedures Referred By Contac t Referred To Contact Diagnoses Mass Uterus Procedures US Pelvis Transvaginal Sushila Harp M.D. [address] [place] [phone] [facility] Region Referral ID Status Reason Start Date Expiration Date Visits Re quested Visits Authorized [id number] Closed 09/13/2023 09/12/2024 1 1 Encounter Details Date Type Department Care Team (Latest Contact Info) Description 09/21/2023 8:30 AM LEAD SCIENTIST Ancillary Procedure Department of Obstetrics and Gynecology in [address] [phone] Sushila Harp M.D. [address] [place] [phone] Mass Uterus Discharge Disposition: Home or Self Care Social History Tobacco Use Types Packs/Day Years Used Date Smoking Tobacco: Never Smokeless Tobacco: Never Alcohol Use Standard Drinks/Week Comments Yes 0 (1 standard drink = 0.6 oz pur e alcohol) occasional C Utilities Answer Date Recorded In the past 12 months has [employer], gas, oil, or water company threatened to [...] your living situation today? I have a [facility] place to live 09/16/2023 Sex and Gender Information Value Date Recorded Sex Assigned at Female 09/16/2023 8:08 PM LEAD SCIENTIST Gender Identity Female 09/16/2023 8:08 PM LEAD SCIENTIST Sexual Orientation Straight 09/16/2023 8: 08 PM LEAD SCIENTIST documented as of this encounter Plan of Treatment Not on file documented as of this encounter Procedures Procedure Name Priority Date/Time Associated Diagnosis Comments US PELVIS TRANSVAGINAL RAD - Routine (most inpatients and all outpatients) 09/21/2023 8:56 AM LEAD SCIENTIST Mass Uterus documented in this encounter Results * US Pelvis Transvaginal (09/21/2023 8:56 AM LEAD SCIENTIST) Anatomical Region Laterality Modality Pelvis, Ultrasound RST LOS, Ultrasound ARZ LOS, Ultrasound FLA LOS N/A Ultrasound Impressions 09/21/2023 6:49 PM LEAD SCIENTIST Endocervix appears heterogeneous and thickened without discrete masses. ??Otherwise normal pelvic ultrasound. ??Endometrium appears thin and homogeneous. ??Exam performed late in the cycle for evaluation for polycystic ovarian syndrome, as follicles >10 mm are noted. Narrative 09/21/2023 6:49 PM LEAD SCIENTIST EXAM: US PELVIS TRANSVAGINAL COMPARISON: TECHNIQUE: Transvaginal. [...]
--- OUTSIDE RECORDS SUMMARY | 2023-12-17 09:34 | XMS_ITS | Clinical Summary ---
Author Name Unknown Organization [facility] Address [address] [place] [address] Care Team Providers Care City Manager Name Role Phone Unavailable Primary Care Provider Unavailabl e Source Comments Patient records contain information from all sites at [facility]. For routine questions regarding patient records, call [phone] during business hours, M-F 8:00 AM - 5:00 PM Central Time. Record requests for emergency care only can be directed to [phone] at any time.[facility] Allergies No known active allergies Medications Medication [...] Department Care Team Description 10/11/2023 3:15 PM BASKET HAND WEAVER - 10/11/2023 11:59 PM BASKET HAND WEAVER Hospital Encounter Department of Laboratory Medicine in [address] [phone] Sushila Harp M.D. Oligomenorrhea Discharge Disposition: Home or Self Care 10/04/2023 12:50 PM BASKET HAND WEAVER - 10/04/2023 11:59 PM BASKET HAND WEAVER Hospital Encounter Department of Laboratory Medicine in [address] [phone] Sushila Harp M.D. Oligomenorrhea Discharge Disposition: Home or Self Care 09/21/2023 8:30 AM BASKET HAND WEAVER Ancillary Procedure Department of Obstetrics and Gynecology in [address] [address] Sushila Harp M.D. Mass Uterus Discharge Disposition: Home or Self Care 09/21/2023 8:30 AM BASKET HAND WEAVER Office Visit Department of Obstetrics and Gynecology in [address] [phone] Sushila Harp M.D. Mass Uterus (Primary Dx); [...] In the past 12 months has e [employer], oil, or water [employer] threatened to shut off services in your [...] your living situation today? I have a [facility] place to live 09/16/2023 Sex and Gender Information Value Date Recorded Sex Assigned at Female 09/16/2023 8:08 PM BASKET HAND WEAVER Gender Identity Female 09/16/2023 8:08 PM BASKET HAND WEAVER Sexual Orientation Straight 09/16/2023 8: 08 PM BASKET HAND WEAVER Last Filed Vital Signs Vital Sign Reading Time Taken Comments Blood Pressure 106/78 09/21/2023 8:20 AM BASKET HAND WEAVER Pulse - - Temperature - - Respiratory Rate - - Oxygen Saturation - - Inhaled Oxygen Concentration - - Weight 66.9 kg (147 lb 7.8 oz) 09/21/2023 8:20 A M BASKET HAND WEAVER Height 164 cm (5' 4.57) 07/28/2023 8:31 AM BASKET HAND WEAVER Body Mass Index 24.87 07/28/2023 8:31 AM BASKET HAND WEAVER Plan of Treatment Health Maintenance Due Date [...] Comments PROGESTERONE, S Routine 10/11/2023 3:24 PM BASKET HAND WEAVER Oligomenorrhea PROGESTERONE, S Routine 10/04/2023 12:56 PM BASKET HAND WEAVER Oligomenorrhea SURGICAL PATHOLOGY Routine 09/21/2023 9: 15 AM BASKET HAND WEAVER Mass Uterus US PELVIS TRANSVAGINAL RAD - Routine (most inpatients and all outpatients) 09/21/2023 8:56 AM BASKET HAND WEAVER Mass Uterus ND CURETTAGE ENDOCERVICAL Routine 09/21/2023 8:30 AM BASKET HAND WEAVER Mass Uterus THINPREP SCREEN HPV REFLEX Routine 07/28/2023 10:08 AM BASKET HAND WEAVER Pap Smear Examination from Last 3 Months or Most Recently Relevant to Health Maintenance Results * Progesterone Level (10/11/2023 3:24 PM BASKET HAND WEAVER) Only the most recent of2 resultswithin the time period is included. Progesterone, S 21 See Note* ng/mL 10/12/2023 1:15 PM BASKET HAND WEAVER DTL Comment: Reference intervals are central 90th % of healthy population. Follicular phase: <=0.89 ng/mL Ovulation: <=12 ng/mL Luteal phase: 1.8-24 ng/ml Post-menopausal: <0.20 ng/mL 1st Trimester: 11-44 ng/mL 2nd Trimester: 25-83 ng/mL 3rd Trimester: 58-214 ng/mL Blood (Blood, Venous) 10/11/2023 3:24 PM BASKET HAND WEAVER 10/12/2023 12:46 PM BASKET HAND WEAVER Sushila Harp M.D. [place] [address], [facility] [address] [place] [address] * Surgical Pathology (09/21/2023 9:15 AM BASKET HAND WEAVER) 09/27/2023 2:04 PM BASKET HAND WEAVER MKTO Report electronically signed by Ander Be MD 09/27/2023 2:04 PM BASKET HAND WEAVER MKTO Specimen Received A. Endocervical curettings cervix (REVISED) 09/27/2023 2:04 PM BASKET HAND WEAVER MKTO Comment: REVISED RESULTS ----PREVIOUSLY REPORTED ---- A. ??Endometrial biopsy, Flagged as: ?? (Reported 09/23/2023 10:10) Clinical History Uterine mass 2023 2:04 PM BASKET HAND WEAVER MKTO Gross Description Submitted as ??endocervix ??curettage are mccoy tissue fragments and mucoid debris filtering to 1.0 cm. ??ESB, one block. ?? BHC;pp 09/27/2023 2:04 PM BASKET HAND WEAVER MKTO Comment: REVISED RESULTS ----PREVIOUSLY REPORTED ---- [...] is no endocervical tissue. 09/27/2023 2:04 PM BASKET HAND WEAVER MKTO Comment: REVISED RESULTS ----PREVIOUSLY REPORTED ---- FINAL DIAGNOSIS Endometrium, curettings: ??Proliferative endometrium., Flagged as: ??(Reported 09/23/2023 10:10) Tissue 09/21/2023 9:15 AM BASKET HAND WEAVER 09/22/2023 6:14 AM BASKET HAND WEAVER Sushila Harp M.D. LAB SURG PATH O RDERABLES [facility] [address] [place] [address], [facility] MKTO [address] [place] [address] * US Pelvis Transvaginal (09/21/2023 8:56 AM BASKET HAND WEAVER) Anatomical Region Laterality Modality Pelvis, Ultrasound RST LOS, Ultrasound ARZ LOS, Ultrasound FLA LOS N/A Ultrasound Impressions 09/21/2023 6:49 PM BASKET HAND WEAVER Endocervix appears heterogeneous and thickened without discrete masses. ??Otherwise normal pelvic ultrasound. ??Endometrium appears thin and homogeneous. ??Exam performed late in the cycle for evaluation for polycystic ovarian syndrome, as follicles >10 mm are noted. Narrative 09/21/2023 6:49 PM BASKET HAND WEAVER EXAM: US PELVIS TRANSVAGINAL COMPARISON: TECHNIQUE: Transvaginal. [...] >10 mm are noted. Sushila Harp M.D. [facility] US PROCEDUR ES * ND CURETTAGE ENDOCERVICAL (09/21/2023 8:30 AM BASKET HAND WEAVER) Narrative MMODAL - 09/21/2023 8:30 AM BASKET HAND WEAVER Sushila Harp M.D. ? 09/21/2023 ??9:22 AM [...] M.D. PROCEDURE/MINOR SURGICAL ORDERABLES MMODAL NA * ThinPrep Screen HPV Reflex (07/28/2023 10:08 AM BASKET HAND WEAVER) 08/02/2023 3:04 PM BASKET HAND WEAVER HKCY Report electronically signed by LINNEA Swift (ASCP) I verify that I have examined all relevant slides/materials for the specimen(s) and rendered or confirmed the diagnosis. 08/02/2023 3:04 PM BASKET HAND WEAVER HKCY Gross Description Received specimen in a ThinPrep vial. 08/02/2023 3:04 PM BASKET HAND WEAVER HKCY Pap Test Source Cervical/Endocervi elizabeth 08/02/2023 3:04 PM BASKET HAND WEAVER HKCY Clinical History routine 08/02/20 3:04 PM BASKET HAND WEAVER HKCY Menstrual Status(LMP, PM, ) lmp 08/02/2023 3:04 PM BASKET HAND WEAVER HKCY Hormone Therapy/Contracep tives None/Not known 08/02/2023 3:04 PM BASKET HAND WEAVER HKCY Interpretation Cervical/Endocervi elizabeth ??(ThinPrep): Satisfactory for Evaluation Partially obscuring inflammation Negative for Intraepithelial Lesion or Malignancy 08/02/2023 3:04 PM BASKET HAND WEAVER HKCY Thin Prep Vial (Cervix/Endocerv ix) 07/28/2023 10:08 AM BASKET HAND WEAVER 07/29/2023 10:57 AM BASKET HAND WEAVER Sushila Harp M.D. LAB PAP PATHDX ORDERABLES Performing Organization Address [facility] Co de Phone Number [facility] [address] [place] [address], [place] [facility] [address] [address] from Last 3 Months or Most Recently Relevant to Health Maintenance
--- OUTSIDE RECORDS SUMMARY | 2023-12-17 09:34 | XMS_ITS | Encounter Summary ---
Author Name Unknown Organization [facility] Address [address] [place] [address] Care Team Providers Care Manager Psychology Name Role Phone Unavailable Primary Care Provider Unavailabl e Reason for Referral * Outpatient (Routine) - Authorized Specialty Diagnoses / Procedures Referred By Contac t Referred To Contact Diagnoses Mass Uterus Procedures Colposcopy Jessie Clayton M.D. [address] [phone] [facility] Region Referral ID Status Reason Start Date Expiration Date V isits Requested Visits Authorized [id number] Authorized 09/21/2023 09/20/2024 1 1 VATOR OPERATOR Reason for Visit * Reason Comments F/u ultrasound results and discuss hyste roscopy * Outpatient (Routine) - Closed Specialty Diagnoses / Procedures Referred By Contac t Referred To Contact Obstetrics and Gynecology Diagnoses Mass Uterus Jessie Clayton M.D. [address] [place] [address] [phone] [facility] Region Referral ID Status Reason Start Date Expiration Date Visits Re quested Visits Authorized [id number] Closed 08/31/2023 08/30/2026 1 1 Encounter Details Date Type Department Care Team ([facility] st Contact Info) Description 09/21/2023 8:30 AM EXCAVATOR OPERATOR Office Visit Department of Obstetrics and Gynecology in [place], [place] [address] [facility] [place] [phone] Jessie Clayton M.D. [address] [facility] [place] [phone] Mass Uterus (Primary Dx); Oligomenorrhea; Polycystic Ovary Syndrome Discharge Disposition: Home or Self Care Social History Tobacco Use Types Packs/Day Years Used Date Smoking Tobacco: Never Smokeless Tobacco: Never Tobacco Cessation:Counseling Given: Not Answered Alcohol Use Standard Drinks/Week Comments Yes 0 (1 standard drink = 0.6 oz pur e alcohol) occasional [facility] Utilities Answer Date Recorded In the past 12 months has e [employer], gas, oil, or water [employer] threatened to shut off services in your [...] Sex Assigned at Female 09/16/2023 8:08 PM EXCAVATOR OPERATOR Gender Identity Female 09/16/2023 8:08 PM EXCAVATOR OPERATOR Sexual Orientation Straight 09/16/2023 8: 08 PM EXCAVATOR OPERATOR documented as of this encounter Last Filed Vital Signs Vital Sign Reading Time Taken Comments Blood Pressure 106/78 09/21/2023 8:20 AM EXCAVATOR OPERATOR Pulse - - Temperature - - Respiratory Rate - - Oxygen Saturation - - Inhaled Oxygen Concentration - - Weight 66.9 kg (147 lb 7.8 oz) 09/21/2023 8:20 A M EXCAVATOR OPERATOR Height - - Body Mass Index 24.87 07/28/2023 8:31 AM EXCAVATOR OPERATOR documented in this encounter Progress Notes * Jessie Clayton M.D. - 09/21/2023 8:30 AM CST SUBJECTIVE MILK TREATER FOLLOW UP CHIEF COMPLAINT/REASON FOR VISIT Follow [...] She is well-developed. Exam conducted with a society editor present. Genitourinary Urethral meatus normal. No lesions [...] with results and to discuss a plan.. VATOR OPERATOR documented in this encounter Procedure Notes * Jessie Clayton M.D. - 09/21/2023 8:30 AM CSTAssociated Order(s): Colposcopy Post-Procedure Diagnose(s): Mass Uterus Colposcopy Performed by: Jessie Clayton M.D. Authorized by: Jessie Clayton M.D. Care team members present 1. Jessie [...] an ECC only, no colposcopy was performed. MILK TREATER VATOR OPERATOR documented in this encounter Miscellaneous Notes * Addendum Note - Jessie Clayton M.D. - 09/21/2023 8:30 AM CSTAddended by: JESSIE CLAYTON on: 10/06/2023 05:57 PM Modules accepted: Orders VATOR OPERATOR documented in this encounter Plan of Treatment Not on file documented as of this encounter Procedures Procedure Name Priority Date/Time Associated Diagnosis Comments SURGICAL PATHOLOGY Routine 09/21/2023 9: 15 AM EXCAVATOR OPERATOR Mass Uterus HI CURETTAGE ENDOCERVICAL Routine 09/21/2023 8:30 AM EXCAVATOR OPERATOR Mass Uterus documented in this encounter Results * Progesterone Level (10/11/2023 3:24 PM EXCAVATOR OPERATOR) Progesterone, S 21 See Note* ng/mL 10/12/2023 1:15 PM EXCAVATOR OPERATOR DTL Comment: Reference intervals are central 90th % of healthy population. Follicular phase: <=0.89 ng/mL Ovulation: <=12 ng/mL Luteal phase: 1.8-24 ng/ml Post-menopausal: <0.20 ng/mL 1st Trimester: 11-44 ng/mL 2nd Trimester: 25-83 ng/mL 3rd Trimester: 58-214 ng/mL Blood (Blood, Venous) 10/11/2023 3:24 PM EXCAVATOR OPERATOR 10/12/2023 12:46 PM EXCAVATOR OPERATOR Jessie Clayton M.D. LAB BLOOD ADD-O N Performing Organization Address [facility] Co de Phone Number [facility] [address] [place] [address] * Progesterone Level (10/04/2023 12:56 PM EXCAVATOR OPERATOR) Progesterone, S 1.4 See Note* ng/mL 10/05/2023 12:57 PM EXCAVATOR OPERATOR DTL Comment: Reference intervals are central 90th % of healthy population. Follicular phase: <=0.89 ng/mL Ovulation: <=12 ng/mL Luteal phase: 1.8-24 ng/ml Post-menopausal: <0.20 ng/mL 1st Trimester: 11-44 ng/mL 2nd Trimester: 25-83 ng/mL 3rd Trimester: 58-214 ng/mL Blood (Blood, Venous) 10/04/2023 12:56 PM EXCAVATOR OPERATOR 10/05/2023 12:25 PM EXCAVATOR OPERATOR Jessie Clayton M.D. LAB BLOOD ADD-O N Performing Organization Address [facility] Co de Phone Number [facility] [address] [place], [place] [address] [place] [address] [address] [place] [address] * Surgical Pathology (09/21/2023 9:15 AM EXCAVATOR OPERATOR) 09/27/2023 2:04 PM EXCAVATOR OPERATOR MKTO Report electronically signed by Ander Be MD 09/27/2023 2:04 PM EXCAVATOR OPERATOR MKTO Specimen Received A. Endocervical curettings cervix (REVISED) 09/27/2023 2:04 PM EXCAVATOR OPERATOR MKTO Comment: REVISED RESULTS ----PREVIOUSLY REPORTED ---- A. ??Endometrial biopsy, Flagged as: ?? (Reported 09/23/2023 10:10) Clinical History Uterine mass 2023 2:04 PM EXCAVATOR OPERATOR MKTO Gross Description Submitted as ??endocervix ??curettage are mccoy tissue fragments and mucoid debris filtering to 1.0 cm. ??ESB, one block. ?? BHC;pp 09/27/2023 2:04 PM EXCAVATOR OPERATOR MKTO Comment: REVISED RESULTS ----PREVIOUSLY REPORTED ---- [...] is no endocervical tissue. 09/27/2023 2:04 PM EXCAVATOR OPERATOR MKTO Comment: REVISED RESULTS ----PREVIOUSLY REPORTED ---- FINAL DIAGNOSIS Endometrium, curettings: ??Proliferative endometrium., Flagged as: ??(Reported 09/23/2023 10:10) Tissue 09/21/2023 9:15 AM EXCAVATOR OPERATOR 09/22/2023 6:14 AM EXCAVATOR OPERATOR Jessie Clayton M.D. LAB SURG PATH O RDERABLES [facility] [place] [address], [facility] MKTO [address] [place] [address] * HI CURETTAGE ENDOCERVICAL (09/21/2023 8:30 AM EXCAVATOR OPERATOR) Narrative MMODAL - 09/21/2023 8:30 AM EXCAVATOR OPERATOR Jessie Clayton M.D. ? 09/21/2023 ??9:22 AM [...]
== END 2023-12-17 09:23 | disposition home or self-care (01) ==
PROVIDERS: Visit Provider Obstetrics & Gynecology
DX: N97.0 Female infertility associated with anovulation (principal); Z13.220 Encounter for screening for lipoid disorders
CPT/HCPCS: 80061; 83498; 83520; 84270; 84402; 84403; 84439; 84443

== ENCOUNTER 2024-01-18 13:48 | Outpatient (CLI) | payer OTHER, SELFPAY ==
--- OUTSIDE RECORDS SUMMARY | 2024-01-18 13:51 | XMS_ITS | Referral Summary ---
Author Organization [facility] Address [address] [place] [address] Care Team Providers Care Cinder Pit Crane Operator Name Role Phone Unavailable Primary Care Provider Unavailabl e Source Comments Patient records contain information from all sites at [facility]. For routine questions regarding patient records, call [phone] during business hours, M-F 8:00 AM - 5:00 PM Central Time. Record requests for emergency care only can be directed to [phone] at any time.[facility] Allergies No known active allergies Medications Medication [...] = 0.6 oz pur e alcohol) occasional [employer] Utilities Answer Date Recorded In the past 12 months has th e [employer]), [employer], oil, or water [employer] threatened to shut off services in your [...] your living situation today? I have a [facility] place to live 09/16/2023 Sex and Gender Information Value Date Recorded Sex Assigned at Female 09/16/2023 8:08 PM PARENT TRAINER Gender Identity Female 09/16/2023 8:08 PM PARENT TRAINER Sexual Orientation Straight 09/16/2023 8: 08 PM PARENT TRAINER Last Filed Vital Signs Vital Sign Reading Time Taken Comments Blood Pressure 106/78 09/21/2023 8:20 AM PARENT TRAINER Pulse - - Temperature - - Respiratory Rate - - Oxygen Saturation - - Inhaled Oxygen Concentration - - Weight 66.9 kg (147 lb 7.8 oz) 09/21/2023 8:20 A M PARENT TRAINER Height 164 cm (5' 4.57) 07/28/2023 8:31 AM PARENT TRAINER Body Mass Index 24.87 07/28/2023 8:31 AM PARENT TRAINER Plan of Treatment Not on file Procedures Procedure Name Priority Date/Time Associated Diagnosis Comments THINPREP SCREEN HPV REFLEX Routine 07/28/2023 10:08 AM PARENT TRAINER Pap Smear Examination from Last 3 Months or Most Recently Relevant to Health Maintenance Results * ThinPrep Screen HPV Reflex (07/28/2023 10:08 AM PARENT TRAINER) 08/02/2023 3:04 PM PARENT TRAINER HKCY Report electronically signed by LINNEA Swift (ASCP) I verify that I have examined all relevant slides/materials for the specimen(s) and rendered or confirmed the diagnosis. 08/02/2023 3:04 PM PARENT TRAINER HKCY Gross Description Received specimen in a ThinPrep vial. 08/02/2023 3:04 PM PARENT TRAINER HKCY Pap Test Source Cervical/Endocervi elizabeth 08/02/2023 3:04 PM PARENT TRAINER HKCY Clinical History routine 08/02/20 3:04 PM PARENT TRAINER HKCY Menstrual Status(LMP, PM, ) lmp 08/02/2023 3:04 PM PARENT TRAINER HKCY Hormone Therapy/Contracep tives None/Not known 08/02/2023 3:04 PM PARENT TRAINER HKCY Interpretation Cervical/Endocervi elizabeth ??(ThinPrep): Satisfactory for Evaluation Partially obscuring inflammation Negative for Intraepithelial Lesion or Malignancy 08/02/2023 3:04 PM PARENT TRAINER HKCY Thin Prep Vial (Cervix/Endocerv ix) 07/28/2023 10:08 AM PARENT TRAINER 07/29/2023 10:57 AM PARENT TRAINER Sushila Harp M.D. LAB PAP PATHDX ORDERABLES [facility] [address] [place] [address], [place] [facility] [address] [address] from Last 3 Months or Most Recently Relevant to Health Maintenance
--- OUTSIDE RECORDS SUMMARY | 2024-01-18 13:51 | XMS_ITS | Encounter Summary ---
Author Organization [facility] Address [address] [place] [address] Care Team Providers Care Ice Cream Scooper Name Role Phone Unavailable Primary Care Provider Unavailabl e Encounter Details Date Type Department Care Team (Latest Contact Info) Description 10/11/2023 3:15 PM HUMAN RESOURCES OPERATIONS DIRECTOR - 10/11/2023 11:59 PM HUMAN RESOURCES OPERATIONS DIRECTOR Hospital Encounter Department of Laboratory Medicine in [place], [place] [address] [place] [phone] Sushila Harp M.D. [address] [place] [phone] Oligomenorrhea Discharge Disposition: Home or Self Care Social History Tobacco Use Types Packs/Day Years Used Date Smoking Tobacco: Never Smokeless Tobacco: Never Alcohol Use Standard Drinks/Week Comments Yes 0 (1 standard drink = 0.6 oz pur e alcohol) occasional [facility] Utilities Answer Date Recorded In the past [address], gas, oil, or water [employer] threatened to shut off services in your [...] your living situation today? I have a [facility] place to live 09/16/2023 Sex and Gender Information Value Date Recorded Sex Assigned at Female 09/16/2023 8:08 PM HUMAN RESOURCES OPERATIONS DIRECTOR Gender Identity Female 09/16/2023 8:08 PM HUMAN RESOURCES OPERATIONS DIRECTOR Sexual Orientation Straight 09/16/2023 8: 08 PM HUMAN RESOURCES OPERATIONS DIRECTOR documented as of this encounter Medications at [...] Comments PROGESTERONE, S Routine 10/11/2023 3:24 PM HUMAN RESOURCES OPERATIONS DIRECTOR Oligomenorrhea documented in this encounter Results * Progesterone Level (10/11/2023 3:24 PM HUMAN RESOURCES OPERATIONS DIRECTOR) Progesterone, S 21 See Note* ng/mL 10/12/2023 1:15 PM HUMAN RESOURCES OPERATIONS DIRECTOR DTL Comment: Reference intervals are central 90th % of healthy population. Follicular phase: <=0.89 ng/mL Ovulation: <=12 ng/mL Luteal phase: 1.8-24 ng/ml Post-menopausal: <0.20 ng/mL 1st Trimester: 11-44 ng/mL 2nd Trimester: 25-83 ng/mL 3rd Trimester: 58-214 ng/mL Blood (Blood, Venous) 10/11/2023 3:24 PM HUMAN RESOURCES OPERATIONS DIRECTOR 10/12/2023 12:46 PM HUMAN RESOURCES OPERATIONS DIRECTOR Sushila Harp M.D. LAB BLOOD ADD-O N [facility] [address] [place] [address], [facility] DTL [facility] [address] [place] [address] documented in this encounter Visit Diagnoses Diagnosis Oligomenorrhea documented in this encounter
--- OUTSIDE RECORDS SUMMARY | 2024-01-18 13:51 | XMS_ITS ---
Author Organization [facility] Address [address] [place] [address] Care Team Providers Care Rn Vascular Name Role Phone Unavailable Unavailable Unavailable Surgery Details Not on file Complications Check Surgery Details section. Procedure Estimated Blood Loss Check Surgery Details section. Procedure Findings Check Surgery Details section. Procedure Specimens Taken Check Surgery Details section.
--- OUTSIDE RECORDS SUMMARY | 2024-01-18 13:51 | XMS_ITS | Clinical Summary ---
Author Organization [facility] Address [address] [place] [address] Care Team Providers Care In Service Education Teacher Name Role Phone Unavailable Primary Care Provider Unavailabl e Source Comments Patient records contain information from all sites at [facility]. For routine questions regarding patient records, call [phone] during business hours, M-F 8:00 AM - 5:00 PM Central Time. Record requests for emergency care only can be directed to [phone] at any time.[facility] Allergies No known active allergies Medications Medication [...] = 0.6 oz pur e alcohol) occasional [employer] Utilities Answer Date Recorded In the past 12 months has th e [employer], gas, oil, or water [employer] threatened to shut off services in your [...] your living situation today? I have a [facility] place to live 09/16/2023 Sex and Gender Information Value Date Recorded Sex Assigned at Female 09/16/2023 8:08 PM BAKERY TEAM LEADER Gender Identity Female 09/16/2023 8:08 PM BAKERY TEAM LEADER Sexual Orientation Straight 09/16/2023 8: 08 PM BAKERY TEAM LEADER Last Filed Vital Signs Vital Sign Reading Time Taken Comments Blood Pressure 106/78 09/21/2023 8:20 AM BAKERY TEAM LEADER Pulse - - Temperature - - Respiratory Rate - - Oxygen Saturation - - Inhaled Oxygen Concentration - - Weight 66.9 kg (147 lb 7.8 oz) 09/21/2023 8:20 A M BAKERY TEAM LEADER Height 164 cm (5' 4.57) 07/28/2023 8:31 AM BAKERY TEAM LEADER Body Mass Index 24.87 07/28/2023 8:31 AM BAKERY TEAM LEADER Plan of Treatment Health Maintenance Due Date [...] SCREEN HPV REFLEX Routine 07/28/2023 10:08 AM BAKERY TEAM LEADER Pap Smear Examination from Last 3 Months or Most Recently Relevant to Health Maintenance Results * ThinPrep Screen HPV Reflex (07/28/2023 10:08 AM BAKERY TEAM LEADER) 08/02/2023 3:04 PM BAKERY TEAM LEADER [facility] Report electronically signed by LINNEA Swift (ASCP) I verify that I have examined all relevant slides/materials for the specimen(s) and rendered or confirmed the diagnosis. 08/02/2023 3:04 PM BAKERY TEAM LEADER [facility] Gross Description Received specimen in a ThinPrep vial. 08/02/2023 3:04 PM BAKERY TEAM LEADER [facility] Pap Test Source Cervical/Endocervi elizabeth 08/02/2023 3:04 PM BAKERY TEAM LEADER [facility] Clinical History routine 08/02/20 3:04 PM BAKERY TEAM LEADER [facility] Menstrual Status(LMP, PM, ) lmp 08/02/2023 3:04 PM BAKERY TEAM LEADER [facility] Hormone Therapy/Contracep tives None/Not known 08/02/2023 3:04 PM BAKERY TEAM LEADER [facility] Interpretation Cervical/Endocervi elizabeth ??(ThinPrep): Satisfactory for Evaluation Partially obscuring inflammation Negative for Intraepithelial Lesion or Malignancy 08/02/2023 3:04 PM BAKERY TEAM LEADER HK[facility] Thin Prep Vial (Cervix/Endocerv ix) 07/28/2023 10:08 AM BAKERY TEAM LEADER 07/29/2023 10:57 AM BAKERY TEAM LEADER Sushila Harp M.D. LAB PAP PATHDX ORDERABLES [facility] [address] [place] [address], [facility]CY [address] [address] from Last 3 Months or Most Recently Relevant to Health Maintenance [place]A Bowens [phone]
--- NOTE | 2024-01-18 14:00 | CRLHL7_ITS ---
For Patients: As a result of the Century Cures Act, medical imaging exams and procedure reports are released immediately into your electronic medical record. You may view this report before your referring provider. If you have questions, please contact your health care provider. INDICATION: First trimester scan, establish dates. COMPARISON: None. TECHNIQUE: Real-time marques-scale imaging of the pelvis was performed. FINDINGS: Intrauterine gestational sac is present with a mean sac diameter of 1.0 cm, 5 weeks 5 days. Yolk sac also noted measuring 2.8 millimeters. No pole. No subchorionic hemorrhage. Simple right ovarian cyst is present measuring 4.3 x 2.5 x 3.5 cm. Normal left ovary. IMPRESSION: Intrauterine gestational sac measuring 5 weeks 5 days containing a yolk sac. No pole. Follow-up in 2 weeks recommended. Dictated by Raúl Stevenson MD @ 01/20/2024 5:42:26 AM (Electronically Signed)
== END 2024-01-18 13:49 | disposition home or self-care (01) ==
LOC: US 13:49
PROVIDERS: Visit Provider Physician Assistant
DX: Z34.91 Encounter for supervision of normal pregnancy, unspecified, first trimester (principal); Z3A.01 Less than 8 weeks gestation of pregnancy
CPT/HCPCS: 76817; 93976

== ENCOUNTER 2024-02-01 11:53 | Outpatient (CLI) | payer OTHER, SELFPAY ==
--- OUTSIDE RECORDS SUMMARY | 2024-02-01 11:56 | XMS_ITS | Clinical Summary ---
Author Organization [facility] Address [address] [place] [address] Care Team Providers Care Continuous Weld Pipe Mill Supervisor Name Role Phone Unavailable Primary Care Provider Unavailabl e Source Comments Patient records contain information from all sites at [facility]. For routine questions regarding patient records, call [phone] during business hours, M-F 8:00 AM - 5:00 PM Central Time. Record requests for emergency care only can be directed to [phone] at any time.[facility] Allergies No known active allergies Medications [...] = 0.6 oz pur e alcohol) occasional [employer] Utilities Answer Date Recorded In the past 12 months has th e [employer], gas, oil, or water [employer] threatened to shut off services in your [...] your living situation today? I have a [facility] place to live 09/16/2023 Sex and Gender Information Value Date Recorded Sex Assigned at Female 09/16/2023 8:08 PM SENIOR CYTOGENETIC TECHNOLOGIST Gender Identity Female 09/16/2023 8:08 PM SENIOR CYTOGENETIC TECHNOLOGIST Sexual Orientation Straight 09/16/2023 8: 08 PM SENIOR CYTOGENETIC TECHNOLOGIST Last Filed Vital Signs Vital Sign Reading Time Taken Comments Blood Pressure 106/78 09/21/2023 8:20 AM SENIOR CYTOGENETIC TECHNOLOGIST Pulse - - Temperature - - Respiratory Rate - - Oxygen Saturation - - Inhaled Oxygen Concentration - - Weight 66.9 kg (147 lb 7.8 oz) 09/21/2023 8:20 A M SENIOR CYTOGENETIC TECHNOLOGIST Height 164 cm (5' 4.57) 07/28/2023 8:31 AM SENIOR CYTOGENETIC TECHNOLOGIST Body Mass Index 24.87 07/28/2023 8:31 AM SENIOR CYTOGENETIC TECHNOLOGIST Plan of Treatment Health Maintenance Due Date [...] SCREEN HPV REFLEX Routine 07/28/2023 10:08 AM SENIOR CYTOGENETIC TECHNOLOGIST Pap Smear Examination from Last 3 Months or Most Recently Relevant to Health Maintenance Results * ThinPrep Screen HPV Reflex (07/28/2023 10:08 AM SENIOR CYTOGENETIC TECHNOLOGIST) 08/02/2023 3:04 PM SENIOR CYTOGENETIC TECHNOLOGIST [facility] Report electronically signed by LINNEA Swift (ASCP) I verify that I have examined all relevant slides/materials for the specimen(s) and rendered or confirmed the diagnosis. 08/02/2023 3:04 PM SENIOR CYTOGENETIC TECHNOLOGIST [facility] Gross Description Received specimen in a ThinPrep vial. 08/02/2023 3:04 PM SENIOR CYTOGENETIC TECHNOLOGIST [facility] Pap Test Source Cervical/Endocervi elizabeth 08/02/2023 3:04 PM SENIOR CYTOGENETIC TECHNOLOGIST [facility] Clinical History routine 08/02/20 3:04 PM SENIOR CYTOGENETIC TECHNOLOGIST [facility] Menstrual Status(LMP, PM, ) lmp 08/02/2023 3:04 PM SENIOR CYTOGENETIC TECHNOLOGIST [facility] Hormone Therapy/Contracep tives None/Not known 08/02/2023 3:04 PM SENIOR CYTOGENETIC TECHNOLOGIST [facility] Interpretation Cervical/Endocervi elizabeth ??(ThinPrep): Satisfactory for Evaluation Partially obscuring inflammation Negative for Intraepithelial Lesion or Malignancy 08/02/2023 3:04 PM SENIOR CYTOGENETIC TECHNOLOGIST [facility] Thin Prep Vial (Cervix/Endocerv ix) 07/28/2023 10:08 AM SENIOR CYTOGENETIC TECHNOLOGIST 07/29/2023 10:57 AM SENIOR CYTOGENETIC TECHNOLOGIST Sushila Harp M.D. LAB PAP PATHDX ORDERABLES [facility] [address] [place] [address], [facility] [address] [address] from Last 3 Months or Most Recently Relevant to Health Maintenance REGINA Bowens [phone]
--- OUTSIDE RECORDS SUMMARY | 2024-02-01 11:56 | XMS_ITS ---
Author Organization [facility] Address [address] [place] [address] Care Team Providers Care Well Logger Name Role Phone Unavailable Unavailable Unavailable Surgery Details Not on file Complications Check Surgery Details section. Procedure Estimated Blood Loss Check Surgery Details section. Procedure Findings Check Surgery Details section. Procedure Specimens Taken Check Surgery Details section.
--- OUTSIDE RECORDS SUMMARY | 2024-02-01 11:56 | XMS_ITS | Referral Summary ---
Author Organization [facility] Address [address] [place] [address] Care Team Providers Care Sand Hauler Name Role Phone Unavailable Primary Care Provider Unavailabl e Source Comments Patient records contain information from all sites at [facility]. For routine questions regarding patient records, call [phone] during business hours, M-F 8:00 AM - 5:00 PM Central Time. Record requests for emergency care only can be directed to [phone] at any time.[facility] Allergies No known active allergies Medications [...] = 0.6 oz pur e alcohol) occasional [employer] Utilities Answer Date Recorded In the past 12 months has th e [employer], [employer], oil, or water [employer] threatened to shut off services in your [...] your living situation today? I have a [facility] place to live 09/16/2023 Sex and Gender Information Value Date Recorded Sex Assigned at Female 09/16/2023 8:08 PM HSPT TUTOR Gender Identity Female 09/16/2023 8:08 PM HSPT TUTOR Sexual Orientation Straight 09/16/2023 8: 08 PM HSPT TUTOR Last Filed Vital Signs Vital Sign Reading Time Taken Comments Blood Pressure 106/78 09/21/2023 8:20 AM HSPT TUTOR Pulse - - Temperature - - Respiratory Rate - - Oxygen Saturation - - Inhaled Oxygen Concentration - - Weight 66.9 kg (147 lb 7.8 oz) 09/21/2023 8:20 A M HSPT TUTOR Height 164 cm (5' 4.57) 07/28/2023 8:31 AM HSPT TUTOR Body Mass Index 24.87 07/28/2023 8:31 AM HSPT TUTOR Plan of Treatment Not on file Procedures Procedure Name Priority Date/Time Associated Diagnosis Comments THINPREP SCREEN HPV REFLEX Routine 07/28/2023 10:08 AM HSPT TUTOR Pap Smear Examination from Last 3 Months or Most Recently Relevant to Health Maintenance Results * ThinPrep Screen HPV Reflex (07/28/2023 10:08 AM HSPT TUTOR) 08/02/2023 3:04 PM HSPT TUTOR [facility] Report electronically signed by LINNEA Swift (ASCP) I verify that I have examined all relevant slides/materials for the specimen(s) and rendered or confirmed the diagnosis. 08/02/2023 3:04 PM HSPT TUTOR [facility] Gross Description Received specimen in a ThinPrep vial. 08/02/2023 3:04 PM HSPT TUTOR [facility] Pap Test Source Cervical/Endocervi elizabeth 08/02/2023 3:04 PM HSPT TUTOR [facility] Clinical History routine 08/02/20 3:04 PM HSPT TUTOR [facility] Menstrual Status(LMP, PM, ) lmp 08/02/2023 3:04 PM HSPT TUTOR [facility] Hormone Therapy/Contracep tives None/Not known 08/02/2023 3:04 PM HSPT TUTOR [facility] Interpretation Cervical/Endocervi elizabeth ??(ThinPrep): Satisfactory for Evaluation Partially obscuring inflammation Negative for Intraepithelial Lesion or Malignancy 08/02/2023 3:04 PM HSPT TUTOR [facility] Thin Prep Vial (Cervix/Endocerv ix) 07/28/2023 10:08 AM HSPT TUTOR 07/29/2023 10:57 AM HSPT TUTOR Sushila Harp M.D. LAB PAP PATHDX ORDERABLES [facility] [address] [place] [address], [place] [facility] [address] [address] from Last 3 Months or Most Recently Relevant to Health Maintenance
== END 2024-02-01 11:54 | disposition home or self-care (01) ==
PROVIDERS: Visit Provider Physician Assistant
DX: Z34.91 Encounter for supervision of normal pregnancy, unspecified, first trimester (principal); Z3A.10 10 weeks gestation of pregnancy
CPT/HCPCS: 76817; 86592; 86703; 86704; 86706; 86762; 86787; 86803; 86850; 86900; 86901; 87086; 87340

== ENCOUNTER 2024-02-09 11:10 | Outpatient (CLI) | payer OTHER, SELFPAY ==
--- OUTSIDE RECORDS SUMMARY | 2024-02-09 11:12 | XMS_ITS ---
Author Organization [facility] Address [address] [place] [address] Care Team Providers Care Second Chef Name Role Phone Unavailable Unavailable Unavailable Surgery Details Not on file Complications Check Surgery Details section. Procedure Estimated Blood Loss Check Surgery Details section. Procedure Findings Check Surgery Details section. Procedure Specimens Taken Check Surgery Details section.
--- OUTSIDE RECORDS SUMMARY | 2024-02-09 11:12 | XMS_ITS | Clinical Summary ---
Author Organization [facility] Address [address] [place] [address] Care Team Providers Care Glass Cylinder Flanger Name Role Phone Unavailable Primary Care Provider Unavailabl e Source Comments Patient records contain information from all sites at [facility]. For routine questions regarding patient records, call [phone] during business hours, M-F 8:00 AM - 5:00 PM Central Time. Record requests for emergency care only can be directed to [phone] at any time.[facility] Allergies No known active allergies Medications [...] = 0.6 oz pur e alcohol) occasional [employer] Utilities Answer Date Recorded In the past 12 months has th e [employer], gas, oil, or water [employer] threatened to shut off services in your [...] your living situation today? I have a [facility] place to live 09/16/2023 Sex and Gender Information Value Date Recorded Sex Assigned at Female 09/16/2023 8:08 PM REPAIRER TYPEWRITER Gender Identity Female 09/16/2023 8:08 PM REPAIRER TYPEWRITER Sexual Orientation Straight 09/16/2023 8: 08 PM REPAIRER TYPEWRITER Last Filed Vital Signs Vital Sign Reading Time Taken Comments Blood Pressure 106/78 09/21/2023 8:20 AM REPAIRER TYPEWRITER Pulse - - Temperature - - Respiratory Rate - - Oxygen Saturation - - Inhaled Oxygen Concentration - - Weight 66.9 kg (147 lb 7.8 oz) 09/21/2023 8:20 A M REPAIRER TYPEWRITER Height 164 cm (5' 4.57) 07/28/2023 8:31 AM REPAIRER TYPEWRITER Body Mass Index 24.87 07/28/2023 8:31 AM REPAIRER TYPEWRITER Plan of Treatment Health Maintenance Due Date [...] SCREEN HPV REFLEX Routine 07/28/2023 10:08 AM REPAIRER TYPEWRITER Pap Smear Examination from Last 3 Months or Most Recently Relevant to Health Maintenance Results * ThinPrep Screen HPV Reflex (07/28/2023 10:08 AM REPAIRER TYPEWRITER) 08/02/2023 3:04 PM REPAIRER TYPEWRITER HK[facility] Report electronically signed by LINNEA Swift (ASCP) I verify that I have examined all relevant slides/materials for the specimen(s) and rendered or confirmed the diagnosis. 08/02/2023 3:04 PM REPAIRER TYPEWRITER [facility] Gross Description Received specimen in a ThinPrep vial. 08/02/2023 3:04 PM REPAIRER TYPEWRITER [facility] Pap Test Source Cervical/Endocervi elizabeth 08/02/2023 3:04 PM REPAIRER TYPEWRITER [facility] Clinical History routine 08/02/20 3:04 PM REPAIRER TYPEWRITER [facility] Menstrual Status(LMP, PM, ) lmp 08/02/2023 3:04 PM REPAIRER TYPEWRITER [facility] Hormone Therapy/Contracep tives None/Not known 08/02/2023 3:04 PM REPAIRER TYPEWRITER [facility] Interpretation Cervical/Endocervi elizabeth ??(ThinPrep): Satisfactory for Evaluation Partially obscuring inflammation Negative for Intraepithelial Lesion or Malignancy 08/02/2023 3:04 PM REPAIRER TYPEWRITER [facility] Thin Prep Vial (Cervix/Endocerv ix) 07/28/2023 10:08 AM REPAIRER TYPEWRITER 07/29/2023 10:57 AM REPAIRER TYPEWRITER Sushila Harp M.D. LAB PAP PATHDX ORDERABLES [facility] [address] [place] [address], [facility] [address] [address] from Last 3 Months or Most Recently Relevant to Health Maintenance REGINA Bowens [phone]
--- OUTSIDE RECORDS SUMMARY | 2024-02-09 11:12 | XMS_ITS | Referral Summary ---
Author Organization [facility] Address [address] [place] [address] Care Team Providers Care Aircraft Designer Name Role Phone Unavailable Primary Care Provider Unavailabl e Source Comments Patient records contain information from all sites at [facility]. For routine questions regarding patient records, call [phone] during business hours, M-F 8:00 AM - 5:00 PM Central Time. Record requests for emergency care only can be directed to [phone] at any time.[facility] Allergies No known active allergies Medications Medication [...] = 0.6 oz pur e alcohol) occasional [employer] Utilities Answer Date Recorded In the past 12 months has th e [employer], [employer], oil, or water [email or web address] threatened to shut off services in your [...] your living situation today? I have a [facility] place to live 09/16/2023 Sex and Gender Information Value Date Recorded Sex Assigned at Female 09/16/2023 8:08 PM WATER SYSTEMS ENGINEER Gender Identity Female 09/16/2023 8:08 PM WATER SYSTEMS ENGINEER Sexual Orientation Straight 09/16/2023 8: 08 PM WATER SYSTEMS ENGINEER Last Filed Vital Signs Vital Sign Reading Time Taken Comments Blood Pressure 106/78 09/21/2023 8:20 AM WATER SYSTEMS ENGINEER Pulse - - Temperature - - Respiratory Rate - - Oxygen Saturation - - Inhaled Oxygen Concentration - - Weight 66.9 kg (147 lb 7.8 oz) 09/21/2023 8:20 A M WATER SYSTEMS ENGINEER Height 164 cm (5' 4.57) 07/28/2023 8:31 AM WATER SYSTEMS ENGINEER Body Mass Index 24.87 07/28/2023 8:31 AM WATER SYSTEMS ENGINEER Plan of Treatment Not on file Procedures Procedure Name Priority Date/Time Associated Diagnosis Comments THINPREP SCREEN HPV REFLEX Routine 07/28/2023 10:08 AM WATER SYSTEMS ENGINEER Pap Smear Examination from Last 3 Months or Most Recently Relevant to Health Maintenance Results * ThinPrep Screen HPV Reflex (07/28/2023 10:08 AM WATER SYSTEMS ENGINEER) 08/02/2023 3:04 PM WATER SYSTEMS ENGINEER [facility] Report electronically signed by LINNEA Swift (ASCP) I verify that I have examined all relevant slides/materials for the specimen(s) and rendered or confirmed the diagnosis. 08/02/2023 3:04 PM WATER SYSTEMS ENGINEER [facility] Gross Description Received specimen in a ThinPrep vial. 08/02/2023 3:04 PM WATER SYSTEMS ENGINEER [facility] Pap Test Source Cervical/Endocervi elizabeth 08/02/2023 3:04 PM WATER SYSTEMS ENGINEER [facility] Clinical History routine 08/02/20 3:04 PM WATER SYSTEMS ENGINEER [facility] Menstrual Status(LMP, PM, ) lmp 08/02/2023 3:04 PM WATER SYSTEMS ENGINEER [facility] Hormone Therapy/Contracep tives None/Not known 08/02/2023 3:04 PM WATER SYSTEMS ENGINEER [facility] Interpretation Cervical/Endocervi elizabeth ??(ThinPrep): Satisfactory for Evaluation Partially obscuring inflammation Negative for Intraepithelial Lesion or Malignancy 08/02/2023 3:04 PM WATER SYSTEMS ENGINEER [facility] Thin Prep Vial (Cervix/Endocerv ix) 07/28/2023 10:08 AM WATER SYSTEMS ENGINEER 07/29/2023 10:57 AM WATER SYSTEMS ENGINEER Sushila Harp M.D. LAB PAP PATHDX ORDERABLES [facility] [address] [place] [address], [place] [facility] [address] [address] from Last 3 Months or Most Recently Relevant to Health Maintenance
--- NOTE | 2024-02-09 11:15 | CRLHL7_ITS ---
For Patients: As a result of the Cures Act, medical imaging exams and procedure reports are released immediately into your electronic medical record. You may view this report before your referring provider. If you have questions, please contact your health care provider. Indication: low heart tones Technique: Ultrasound OB pelvis transvaginal. Real-time marques-scale and color Doppler imaging of the pelvis was performed. Comparison: Obstetric ultrasound on February 01, 2024 Findings: There is re-demonstration of an intrauterine gestation with a pole measuring 0.7 centimeters in length consistent with a 6 week and 4 day gestation. There are no heart tones. There is no visualized yolk sac. The bilateral ovaries are within normal limits in appearance and size measuring 3.9 x 2.5 x 2.3 centimeters on the right and 3.2 x 2.0 x 1.7 centimeters on the left. There is a corpus luteal cyst associated with the right ovary that measures 2.8 x 2.0 x 1.7 centimeters. No free fluid. Impression: Intrauterine gestation with crown-rump length measuring 0.7 centimeters consistent with a 6 week and 4 day gestation with no heart tones. Cessation of previously documented cardiac activity is diagnostic of failed early . Dictated by Vik Flores MD @ 02/09/2024 12:14:08 PM (Electronically Signed)
== END 2024-02-09 11:11 | disposition home or self-care (01) ==
LOC: US 11:11
PROVIDERS: Visit Provider Physician Assistant
DX: O36.8310 Maternal care for abnormalities of the fetal heart rate or rhythm, first trimester, not applicable or unspecified (principal); Z3A.01 Less than 8 weeks gestation of pregnancy
CPT/HCPCS: 76817

== ENCOUNTER 2024-02-09 13:57 | Outpatient (CLI) | payer OTHER, SELFPAY ==
--- OUTSIDE RECORDS SUMMARY | 2024-02-09 13:59 | XMS_ITS | Clinical Summary ---
Author Organization [facility] Address [address] [place] [address] Care Team Providers Care Business Development Sales Executive Name Role Phone Unavailable Primary Care Provider Unavailabl e Source Comments Patient records contain information from all sites at [facility]. For routine questions regarding patient records, call [phone] during business hours, M-F 8:00 AM - 5:00 PM Central Time. Record requests for emergency care only can be directed to [phone] at any time.[facility] Allergies No known active allergies Medications [...] = 0.6 oz pur e alcohol) occasional [employer] Utilities Answer Date Recorded In the past 12 months has th e [employer], gas, oil, or water [employer] threatened to shut off services in your [...] your living situation today? I have a [facility] place to live 09/16/2023 Sex and Gender Information Value Date Recorded Sex Assigned at Female 09/16/2023 8:08 PM FALL INTERN Gender Identity Female 09/16/2023 8:08 PM FALL INTERN Sexual Orientation Straight 09/16/2023 8: 08 PM FALL INTERN Last Filed Vital Signs Vital Sign Reading Time Taken Comments Blood Pressure 106/78 09/21/2023 8:20 AM FALL INTERN Pulse - - Temperature - - Respiratory Rate - - Oxygen Saturation - - Inhaled Oxygen Concentration - - Weight 66.9 kg (147 lb 7.8 oz) 09/21/2023 8:20 A M FALL INTERN Height 164 cm (5' 4.57) 07/28/2023 8:31 AM FALL INTERN Body Mass Index 24.87 07/28/2023 8:31 AM FALL INTERN Plan of Treatment Health Maintenance Due Date [...] SCREEN HPV REFLEX Routine 07/28/2023 10:08 AM FALL INTERN Pap Smear Examination from Last 3 Months or Most Recently Relevant to Health Maintenance Results * ThinPrep Screen HPV Reflex (07/28/2023 10:08 AM FALL INTERN) 08/02/2023 3:04 PM FALL INTERN [facility] Report electronically signed by LINNEA Swift (ASCP) I verify that I have examined all relevant slides/materials for the specimen(s) and rendered or confirmed the diagnosis. 08/02/2023 3:04 PM FALL INTERN [facility] Gross Description Received specimen in a ThinPrep vial. 08/02/2023 3:04 PM FALL INTERN [facility] Pap Test Source Cervical/Endocervi elizabeth 08/02/2023 3:04 PM FALL INTERN [facility] Clinical History routine 08/02/20 3:04 PM FALL INTERN [facility] Menstrual Status(LMP, PM, ) lmp 08/02/2023 3:04 PM FALL INTERN [facility] Hormone Therapy/Contracep tives None/Not known 08/02/2023 3:04 PM FALL INTERN [facility] Interpretation Cervical/Endocervi elizabeth ??(ThinPrep): Satisfactory for Evaluation Partially obscuring inflammation Negative for Intraepithelial Lesion or Malignancy 08/02/2023 3:04 PM FALL INTERN HKCY Thin Prep Vial (Cervix/Endocerv ix) 07/28/2023 10:08 AM FALL INTERN 07/29/2023 10:57 AM FALL INTERN Sushila Harp M.D. LAB PAP PATHDX ORDERABLES [facility] [address] [place] [address], [facility] [address] [address] from Last 3 Months or Most Recently Relevant to Health Maintenance REGINA Bowens [phone]
--- OUTSIDE RECORDS SUMMARY | 2024-02-09 13:59 | XMS_ITS | Referral Summary ---
Author Organization [facility] Address [address] [place] [address] Care Team Providers Care Fuel Island Attendant Name Role Phone Unavailable Primary Care Provider Unavailabl e Source Comments Patient records contain information from all sites at [facility]. For routine questions regarding patient records, call [phone] during business hours, M-F 8:00 AM - 5:00 PM Central Time. Record requests for emergency care only can be directed to [phone] at any time.[facility] Allergies No known active allergies Medications [...] = 0.6 oz pur e alcohol) occasional [employer] Utilities Answer Date Recorded In the past 12 months has th e [employer], [employer], oil, or water [employer] threatened to shut off services in your [...] your living situation today? I have a [facility] place to live 09/16/2023 Sex and Gender Information Value Date Recorded Sex Assigned at Female 09/16/2023 8:08 PM TECHNICAL INTERN Gender Identity Female 09/16/2023 8:08 PM TECHNICAL INTERN Sexual Orientation Straight 09/16/2023 8: 08 PM TECHNICAL INTERN Last Filed Vital Signs Vital Sign Reading Time Taken Comments Blood Pressure 106/78 09/21/2023 8:20 AM TECHNICAL INTERN Pulse - - Temperature - - Respiratory Rate - - Oxygen Saturation - - Inhaled Oxygen Concentration - - Weight 66.9 kg (147 lb 7.8 oz) 09/21/2023 8:20 A M TECHNICAL INTERN Height 164 cm (5' 4.57) 07/28/2023 8:31 AM TECHNICAL INTERN Body Mass Index 24.87 07/28/2023 8:31 AM TECHNICAL INTERN Plan of Treatment Not on file Procedures Procedure Name Priority Date/Time Associated Diagnosis Comments THINPREP SCREEN HPV REFLEX Routine 07/28/2023 10:08 AM TECHNICAL INTERN Pap Smear Examination from Last 3 Months or Most Recently Relevant to Health Maintenance Results * ThinPrep Screen HPV Reflex (07/28/2023 10:08 AM TECHNICAL INTERN) 08/02/2023 3:04 PM TECHNICAL INTERN HKCY Report electronically signed by LINNEA Swift (ASCP) I verify that I have examined all relevant slides/materials for the specimen(s) and rendered or confirmed the diagnosis. 08/02/2023 3:04 PM TECHNICAL INTERN HK[facility] Gross Description Received specimen in a ThinPrep vial. 08/02/2023 3:04 PM TECHNICAL INTERN [facility] Pap Test Source Cervical/Endocervi elizabeth 08/02/2023 3:04 PM TECHNICAL INTERN [facility] Clinical History routine 08/02/20 3:04 PM TECHNICAL INTERN [facility] Menstrual Status(LMP, PM, ) lmp 08/02/2023 3:04 PM TECHNICAL INTERN [facility] Hormone Therapy/Contracep tives None/Not known 08/02/2023 3:04 PM TECHNICAL INTERN [facility] Interpretation Cervical/Endocervi elizabeth ??(ThinPrep): Satisfactory for Evaluation Partially obscuring inflammation Negative for Intraepithelial Lesion or Malignancy 08/02/2023 3:04 PM TECHNICAL INTERN HKCY Thin Prep Vial (Cervix/Endocerv ix) 07/28/2023 10:08 AM TECHNICAL INTERN 07/29/2023 10:57 AM TECHNICAL INTERN Sushila Harp M.D. LAB PAP PATHDX ORDERABLES [facility] [address] [place] [address], [place] [facility] [address] [address] from Last 3 Months or Most Recently Relevant to Health Maintenance
--- OUTSIDE RECORDS SUMMARY | 2024-02-09 13:59 | XMS_ITS ---
Author Organization [facility] Address [address] [place] [address] Care Team Providers Care Accounting Bookkeeper Name Role Phone Unavailable Unavailable Unavailable Surgery Details Not on file Complications Check Surgery Details section. Procedure Estimated Blood Loss Check Surgery Details section. Procedure Findings Check Surgery Details section. Procedure Specimens Taken Check Surgery Details section.
== END 2024-02-09 13:58 | disposition home or self-care (01) ==
LOC: NFLDREF 13:57
PROVIDERS: Visit Provider Physician Assistant
DX: O02.1 Missed abortion (principal)
CPT/HCPCS: J2791

== ENCOUNTER 2024-02-28 14:50 | Outpatient (CLI) | payer OTHER, SELFPAY ==
--- OUTSIDE RECORDS SUMMARY | 2024-03-01 05:55 | XMS_ITS | Clinical Summary ---
Author Organization [facility] Address [address] [place] [address] Care Team Providers Care Delicatessen Manager Name Role Phone Unavailable Primary Care Provider Unavailabl e Source Comments Patient records contain information from all sites at [facility]. For routine questions regarding patient records, call [phone] during business hours, M-F 8:00 AM - 5:00 PM Central Time. Record requests for emergency care only can be directed to [phone] at any time.[facility] Allergies No known active allergies Medications [...] = 0.6 oz pur e alcohol) occasional [employer] Utilities Answer Date Recorded In the past 12 months has th e [employer], gas, oil, or water [employer] threatened to shut off services in your [...] your living situation today? I have a [facility] place to live 09/16/2023 Sex and Gender Information Value Date Recorded Sex Assigned at Female 09/16/2023 8:08 PM HOSPITALIST PHYSICIAN Gender Identity Female 09/16/2023 8:08 PM HOSPITALIST PHYSICIAN Sexual Orientation Straight 09/16/2023 8: 08 PM HOSPITALIST PHYSICIAN Last Filed Vital Signs Vital Sign Reading Time Taken Comments Blood Pressure 106/78 09/21/2023 8:20 AM HOSPITALIST PHYSICIAN Pulse - - Temperature - - Respiratory Rate - - Oxygen Saturation - - Inhaled Oxygen Concentration - - Weight 66.9 kg (147 lb 7.8 oz) 09/21/2023 8:20 A M HOSPITALIST PHYSICIAN Height 164 cm (5' 4.57) 07/28/2023 8:31 AM HOSPITALIST PHYSICIAN Body Mass Index 24.87 07/28/2023 8:31 AM HOSPITALIST PHYSICIAN Plan of Treatment Health Maintenance Due Date Last Done Comments HIV Screening 1995 Hepatitis C Screening 1995 Hepatitis B Vaccines (4 of 4 - 4-dose series) 1995 1995, 1995, 1995 COVID-19 Vaccine ( season) 2023 Depression Screening (Annual PHQ-2) 08/16/2023 Influenza Vaccine (#1) 2024 4, 07/16/2012, 07/16/2012, Additional history exists Cervical Cancer Screening 07/28/2026 07/28/2023 DTaP,Tdap,and Td [...] SCREEN HPV REFLEX Routine 07/28/2023 10:08 AM HOSPITALIST PHYSICIAN Pap Smear Examination from Last 3 Months or Most Recently Relevant to Health Maintenance Results * ThinPrep Screen HPV Reflex (07/28/2023 10:08 AM HOSPITALIST PHYSICIAN) 08/02/2023 3:04 PM HOSPITALIST PHYSICIAN [facility] Report electronically signed by LINNEA Swift (ASCP) I verify that I have examined all relevant slides/materials for the specimen(s) and rendered or confirmed the diagnosis. 08/02/2023 3:04 PM HOSPITALIST PHYSICIAN [facility] Gross Description Received specimen in a ThinPrep vial. 08/02/2023 3:04 PM HOSPITALIST PHYSICIAN [facility] Pap Test Source Cervical/Endocervi elizabeth 08/02/2023 3:04 PM HOSPITALIST PHYSICIAN [facility] Clinical History routine 08/02/20 3:04 PM HOSPITALIST PHYSICIAN [facility] Menstrual Status(LMP, PM, ) lmp 08/02/2023 3:04 PM HOSPITALIST PHYSICIAN [facility] Hormone Therapy/Contracep tives None/Not known 08/02/2023 3:04 PM HOSPITALIST PHYSICIAN [facility] Interpretation Cervical/Endocervi elizabeth ??(ThinPrep): Satisfactory for Evaluation Partially obscuring inflammation Negative for Intraepithelial Lesion or Malignancy 08/02/2023 3:04 PM HOSPITALIST PHYSICIAN [facility] Thin Prep Vial (Cervix/Endocerv ix) 07/28/2023 10:08 AM HOSPITALIST PHYSICIAN 07/29/2023 10:57 AM HOSPITALIST PHYSICIAN Sushila Harp M.D. LAB PAP PATHDX ORDERABLES [facility] [address] [place] [address], [facility] [address] [address] from Last 3 Months or Most Recently Relevant to Health Maintenance REGINA Bowens [phone]
--- OUTSIDE RECORDS SUMMARY | 2024-03-01 05:55 | XMS_ITS ---
Author Organization [facility] Address [address] [place] [address] Care Team Providers Care Counter Dish Carrier Name Role Phone Unavailable Unavailable Unavailable Surgery Details Not on file Complications Check Surgery Details section. Procedure Estimated Blood Loss Check Surgery Details section. Procedure Findings Check Surgery Details section. Procedure Specimens Taken Check Surgery Details section.
--- OUTSIDE RECORDS SUMMARY | 2024-03-01 05:55 | XMS_ITS | Referral Summary ---
Author Organization [facility] Address [address] [place] [address] Care Team Providers Care Freight And Passenger Agent Name Role Phone Unavailable Primary Care Provider Unavailabl e Source Comments Patient records contain information from all sites at [facility]. For routine questions regarding patient records, call [phone] during business hours, M-F 8:00 AM - 5:00 PM Central Time. Record requests for emergency care only can be directed to [phone] at any time.[facility] Allergies No known active allergies Medications Medication [...] = 0.6 oz pur e alcohol) occasional [employer] Utilities Answer Date Recorded In the past 12 months has th e [employer], [employer], oil, or water [employer] threatened to shut off services in your [...] your living situation today? [facility] a [facility] 09/16/2023 Sex and Gender Information Value Date Recorded Sex Assigned at Female 09/16/2023 8:08 PM HAND MITER OPERATOR Gender Identity Female 09/16/2023 8:08 PM HAND MITER OPERATOR Sexual Orientation Straight 09/16/2023 8: 08 PM HAND MITER OPERATOR Last Filed Vital Signs Vital Sign Reading Time Taken Comments Blood Pressure 106/78 09/21/2023 8:20 AM HAND MITER OPERATOR Pulse - - Temperature - - Respiratory Rate - - Oxygen Saturation - - Inhaled Oxygen Concentration - - Weight 66.9 kg (147 lb 7.8 oz) 09/21/2023 8:20 A M HAND MITER OPERATOR Height 164 cm (5' 4.57) 07/28/2023 8:31 AM HAND MITER OPERATOR Body Mass Index 24.87 07/28/2023 8:31 AM HAND MITER OPERATOR Plan of Treatment Not on file Procedures Procedure Name Priority Date/Time Associated Diagnosis Comments THINPREP SCREEN HPV REFLEX Routine 07/28/2023 10:08 AM HAND MITER OPERATOR Pap Smear Examination from Last 3 Months or Most Recently Relevant to Health Maintenance Results * ThinPrep Screen HPV Reflex (07/28/2023 10:08 AM HAND MITER OPERATOR) 08/02/2023 3:04 PM HAND MITER OPERATOR [facility] Report electronically signed by LINNEA Swift (ASCP) I verify that I have examined all relevant slides/materials for the specimen(s) and rendered or confirmed the diagnosis. 08/02/2023 3:04 PM HAND MITER OPERATOR [facility] Gross Description Received specimen in a ThinPrep vial. 08/02/2023 3:04 PM HAND MITER OPERATOR [facility] Pap Test Source Cervical/Endocervi elizabeth 08/02/2023 3:04 PM HAND MITER OPERATOR [facility] Clinical History routine 08/02/20 3:04 PM HAND MITER OPERATOR [facility] Menstrual Status(LMP, PM, ) lmp 08/02/2023 3:04 PM HAND MITER OPERATOR [facility] Hormone Therapy/Contracep tives None/Not known 08/02/2023 3:04 PM HAND MITER OPERATOR [facility] Interpretation Cervical/Endocervi elizabeth ??(ThinPrep): Satisfactory for Evaluation Partially obscuring inflammation Negative for Intraepithelial Lesion or Malignancy 08/02/2023 3:04 PM HAND MITER OPERATOR [facility] Thin Prep Vial (Cervix/Endocerv ix) 07/28/2023 10:08 AM HAND MITER OPERATOR 07/29/2023 10:57 AM HAND MITER OPERATOR Sushila Harp M.D. LAB PAP PATHDX ORDERABLES [facility] [address] [place] [address], [place] [facility] [address] [address] from Last 3 Months or Most Recently Relevant to Health Maintenance
== END 2024-02-28 14:51 | disposition home or self-care (01) ==
LOC: NFLDREF 03-01 05:54
PROVIDERS: Visit Provider Physician Assistant
DX: O02.1 Missed abortion (principal)
CPT/HCPCS: 84702

== ENCOUNTER 2024-03-13 15:35 | Outpatient (CLI) | payer OTHER, SELFPAY ==
--- OUTSIDE RECORDS SUMMARY | 2024-03-14 11:24 | XMS_ITS | Clinical Summary ---
Author Organization [facility] Address [address] [place] [address] Care Team Providers Care Alarm Installation Technician Name Role Phone Unavailable Primary Care Provider Unavailabl e Source Comments Patient records contain information from all sites at [facility]. For routine questions regarding patient records, call [phone] during business hours, M-F 8:00 AM - 5:00 PM Central Time. Record requests for emergency care only can be directed to [phone] at any time.[facility] Allergies No known active allergies [...] Diagnosed Date Pain Epigastric 07/28/2023 Oligomenorrhea 07/28/2023 Overview (09/21/2023): Oligomenorrhea and acne, but no other biochemical [...] evaluation for male factor. Mass Uterus 07/28/2023 Overview (09/21/2023): Thickening of the endometrium in the lower uterine segment noted on 2 prior ultrasounds, today the endometrium appears normal early in her cycle, but the endocervical canal appears thickened and diffusely heterogeneous and non- vascular. ECC was performed to further evaluate this. We will be in touch with her with results. \ Pain Left Lower Quadrant 07/28/2023 Overview (07/28/2023): Exam is normal today and without tenderness. Testing for gonorrhea and Chlamydia was performed today. Ultrasound will be repeated on days 5-10 of her cycle to evaluate this.. Polycystic Ovary Syndrome 06/17/2022 Overview (09/21/2023): Diagnosed by gynecology based upon oligomenorrhea and [...] = 0.6 oz pur e alcohol) occasional [employer] Utilities Answer Date Recorded In the past 12 months has th e [employer], gas, oil, or water [employer] threatened to shut off services in your [...] your living situation today? I have a [facility] place to live 09/16/2023 Sex and Gender Information Value Date Recorded Sex Assigned at Female 09/16/2023 8:08 PM RV PARTS AND SERVICE DIRECTOR Gender Identity Female 09/16/2023 8:08 PM RV PARTS AND SERVICE DIRECTOR Sexual Orientation Straight 09/16/2023 8: 08 PM RV PARTS AND SERVICE DIRECTOR Last Filed Vital Signs Vital Sign Reading Time Taken Comments Blood Pressure 106/78 09/21/2023 8:20 AM RV PARTS AND SERVICE DIRECTOR Pulse - - Temperature - - Respiratory Rate - - Oxygen Saturation - - Inhaled Oxygen Concentration - - Weight 66.9 kg (147 lb 7.8 oz) 09/21/2023 8:20 A M RV PARTS AND SERVICE DIRECTOR Height 164 cm (5' 4.57) 07/28/2023 8:31 AM RV PARTS AND SERVICE DIRECTOR Body Mass Index 24.87 07/28/2023 8:31 AM RV PARTS AND SERVICE DIRECTOR Plan of Treatment Health Maintenance Due Date [...] SCREEN HPV REFLEX Routine 07/28/2023 10:08 AM RV PARTS AND SERVICE DIRECTOR Pap Smear Examination from Last 3 Months or Most Recently Relevant to Health Maintenance Results * ThinPrep Screen HPV Reflex (07/28/2023 10:08 AM RV PARTS AND SERVICE DIRECTOR) 08/02/2023 3:04 PM RV PARTS AND SERVICE DIRECTOR [facility] Report electronically signed by LINNEA Swift (ASCP) I verify that I have examined all relevant slides/materials for the specimen(s) and rendered or confirmed the diagnosis. 08/02/2023 3:04 PM RV PARTS AND SERVICE DIRECTOR [facility] Gross Description Received specimen in a ThinPrep vial. 08/02/2023 3:04 PM RV PARTS AND SERVICE DIRECTOR [facility] Pap Test Source Cervical/Endocervi elizabeth 08/02/2023 3:04 PM RV PARTS AND SERVICE DIRECTOR [facility] Clinical History routine 08/02/20 3:04 PM RV PARTS AND SERVICE DIRECTOR [facility] Menstrual Status(LMP, PM, ) lmp 08/02/2023 3:04 PM RV PARTS AND SERVICE DIRECTOR [facility] Hormone Therapy/Contracep tives None/Not known 08/02/2023 3:04 PM RV PARTS AND SERVICE DIRECTOR [facility] Interpretation Cervical/Endocervi elizabeth ??(ThinPrep): Satisfactory for Evaluation Partially obscuring inflammation Negative for Intraepithelial Lesion or Malignancy 08/02/2023 3:04 PM RV PARTS AND SERVICE DIRECTOR [facility] Thin Prep Vial (Cervix/Endocerv ix) 07/28/2023 10:08 AM RV PARTS AND SERVICE DIRECTOR 07/29/2023 10:57 AM RV PARTS AND SERVICE DIRECTOR Sushila Harp M.D. LAB PAP PATHDX ORDERABLES [facility] [address] [place] [address], [place] [facility] [address] [facility] [address] [place] [id number] from Last 3 Months or Most Recently Relevant to Health Maintenance
--- OUTSIDE RECORDS SUMMARY | 2024-03-14 11:24 | XMS_ITS | Referral Summary ---
Author Organization [facility] Address [address] [place] [address] Care Team Providers Care Fabric Separator Operator Name Role Phone Unavailable Primary Care Provider Unavailabl e Source Comments Patient records contain information from all sites at [facility]. For routine questions regarding patient records, call [phone] during business hours, M-F 8:00 AM - 5:00 PM Central Time. Record requests for emergency care only can be directed to [phone] at any time.[facility] Allergies No known active allergies Medications [...] = 0.6 oz pur e alcohol) occasional [employer] Utilities Answer Date Recorded In the past 12 months has [employer], gas, oil, or water [employer] threatened to shut off services in your [...] living situation today? I have a [facility] place to live 09/16/2023 Sex and Gender Information Value Date Recorded Sex Assigned at Female 09/16/2023 8:08 PM GENERAL TELLER Gender Identity Female 09/16/2023 8:08 PM GENERAL TELLER Sexual Orientation Straight 09/16/2023 8: 08 PM GENERAL TELLER Last Filed Vital Signs Vital Sign Reading Time Taken Comments Blood Pressure 106/78 09/21/2023 8:20 AM GENERAL TELLER Pulse - - Temperature - - Respiratory Rate - - Oxygen Saturation - - Inhaled Oxygen Concentration - - Weight 66.9 kg (147 lb 7.8 oz) 09/21/2023 8:20 A M GENERAL TELLER Height 164 cm (5' 4.57) 07/28/2023 8:31 AM GENERAL TELLER Body Mass Index 24.87 07/28/2023 8:31 AM GENERAL TELLER Plan of Treatment Not on file Procedures Procedure Name Priority Date/Time Associated Diagnosis Comments THINPREP SCREEN HPV REFLEX Routine 07/28/2023 10:08 AM GENERAL TELLER Pap Smear Examination from Last 3 Months or Most Recently Relevant to Health Maintenance Results * ThinPrep Screen HPV Reflex (07/28/2023 10:08 AM GENERAL TELLER) 08/02/2023 3:04 PM GENERAL TELLER [facility] Report electronically signed by LINNEA Swift (ASCP) I verify that I have examined all relevant slides/materials for the specimen(s) and rendered or confirmed the diagnosis. 08/02/2023 3:04 PM GENERAL TELLER [facility] Gross Description Received specimen in a ThinPrep vial. 08/02/2023 3:04 PM GENERAL TELLER [facility] Pap Test Source Cervical/Endocervi elizabeth 08/02/2023 3:04 PM GENERAL TELLER [facility] Clinical History routine 08/02/20 3:04 PM GENERAL TELLER [facility] Menstrual Status(LMP, PM, ) lmp 08/02/2023 3:04 PM GENERAL TELLER [facility] Hormone Therapy/Contracep tives None/Not known 08/02/2023 3:04 PM GENERAL TELLER [facility] Interpretation Cervical/Endocervi elizabeth ??(ThinPrep): Satisfactory for Evaluation Partially obscuring inflammation Negative for Intraepithelial Lesion or Malignancy 08/02/2023 3:04 PM GENERAL TELLER [facility] Thin Prep Vial (Cervix/Endocerv ix) 07/28/2023 10:08 AM GENERAL TELLER 07/29/2023 10:57 AM GENERAL TELLER Sushila Harp M.D. LAB PAP PATHDX ORDERABLES Performing Organization Address City/State/[facility] Co de Phone Number [facility] [address] [place] [address], [facility] [address] [address] from Last 3 Months or Most Recently Relevant to Health Maintenance
--- OUTSIDE RECORDS SUMMARY | 2024-03-14 11:24 | XMS_ITS ---
Author Organization [facility] Address [address] [place] [address] Care Team Providers Care Weight Reducing Technician Name Role Phone Unavailable Unavailable Unavailable Surgery Details Not on file Complications Check Surgery Details section. Procedure Estimated Blood Loss Check Surgery Details section. Procedure Findings Check Surgery Details section. Procedure Specimens Taken Check Surgery Details section.
== END 2024-03-13 15:36 | disposition home or self-care (01) ==
LOC: NFLDREF 03-14 11:22
PROVIDERS: Visit Provider Physician Assistant
DX: O02.1 Missed abortion (principal)
CPT/HCPCS: 84702

== ENCOUNTER 2024-03-23 16:01 | Outpatient (CLI) | payer OTHER, SELFPAY ==
--- OUTSIDE RECORDS SUMMARY | 2024-03-30 08:21 | XMS_ITS | Referral Summary ---
Author Organization [facility] Address [address] [place] [address] Care Team Providers Care Senior Application Programmer Name Role Phone Unavailable Primary Care Provider Unavailabl e Source Comments Patient records contain information from all sites at [facility]. For routine questions regarding patient records, call [phone] during business hours, M-F 8:00 AM - 5:00 PM Central Time. Record requests for emergency care only can be directed to [phone] at any time.[facility] Allergies No known active allergies Medications Medication [...] = 0.6 oz pur e alcohol) occasional [employer] Utilities Answer Date Recorded In the past 12 months has [employer], gas, oil, or water [employer] threatened to shut off services in your [...] your living situation today? I have a [facility] place to live 09/16/2023 Sex and Gender Information Value Date Recorded Sex Assigned at Female 09/16/2023 8:08 PM CLINIC BUSINESS MANAGER Gender Identity Female 09/16/2023 8:08 PM CLINIC BUSINESS MANAGER Sexual Orientation Straight 09/16/2023 8: 08 PM CLINIC BUSINESS MANAGER Last Filed Vital Signs Vital Sign Reading Time Taken Comments Blood Pressure 106/78 09/21/2023 8:20 AM CLINIC BUSINESS MANAGER Pulse - - Temperature - - Respiratory Rate - - Oxygen Saturation - - Inhaled Oxygen Concentration - - Weight 66.9 kg (147 lb 7.8 oz) 09/21/2023 8:20 A M CLINIC BUSINESS MANAGER Height 164 cm (5' 4.57) 07/28/2023 8:31 AM CLINIC BUSINESS MANAGER Body Mass Index 24.87 07/28/2023 8:31 AM CLINIC BUSINESS MANAGER Plan of Treatment Not on file Procedures Procedure Name Priority Date/Time Associated Diagnosis Comments THINPREP SCREEN HPV REFLEX Routine 07/28/2023 10:08 AM CLINIC BUSINESS MANAGER Pap Smear Examination from Last 3 Months or Most Recently Relevant to Health Maintenance Results * ThinPrep Screen HPV Reflex (07/28/2023 10:08 AM CLINIC BUSINESS MANAGER) 08/02/2023 3:04 PM CLINIC BUSINESS MANAGER [facility] Report electronically signed by LINNEA Swift (ASCP) I verify that I have examined all relevant slides/materials for the specimen(s) and rendered or confirmed the diagnosis. 08/02/2023 3:04 PM CLINIC BUSINESS MANAGER [facility] Gross Description Received specimen in a ThinPrep vial. 08/02/2023 3:04 PM CLINIC BUSINESS MANAGER [facility] Pap Test Source Cervical/Endocervi elizabeth 08/02/2023 3:04 PM CLINIC BUSINESS MANAGER [facility] Clinical History routine 08/02/20 3:04 PM CLINIC BUSINESS MANAGER [facility] Menstrual Status(LMP, PM, ) lmp 08/02/2023 3:04 PM CLINIC BUSINESS MANAGER [facility] Hormone Therapy/Contracep tives None/Not known 08/02/2023 3:04 PM CLINIC BUSINESS MANAGER [facility] Interpretation Cervical/Endocervi elizabeth ??(ThinPrep): Satisfactory for Evaluation Partially obscuring inflammation Negative for Intraepithelial Lesion or Malignancy 08/02/2023 3:04 PM CLINIC BUSINESS MANAGER [facility] Thin Prep Vial (Cervix/Endocerv ix) 07/28/2023 10:08 AM CLINIC BUSINESS MANAGER 07/29/2023 10:57 AM CLINIC BUSINESS MANAGER Sushila Harp M.D. LAB PAP PATHDX ORDERABLES Performing Organization Address City/State/[facility] Co de Phone Number [facility] [address] [place] [address], [facility] [address] [address] from Last 3 Months or Most Recently Relevant to Health Maintenance
--- OUTSIDE RECORDS SUMMARY | 2024-03-30 08:21 | XMS_ITS ---
Author Organization [facility] Address [address] [place] [address] Care Team Providers Care Nurse Case Manager Name Role Phone Unavailable Unavailable Unavailable Surgery Details Not on file Complications Check Surgery Details section. Procedure Estimated Blood Loss Check Surgery Details section. Procedure Findings Check Surgery Details section. Procedure Specimens Taken Check Surgery Details section.
--- OUTSIDE RECORDS SUMMARY | 2024-03-30 08:21 | XMS_ITS | Clinical Summary ---
Author Organization [facility] Address [address] [place] [address] Care Team Providers Care Sound Truck Operator Name Role Phone Unavailable Primary Care Provider Unavailabl e Source Comments Patient records contain information from all sites at [facility]. For routine questions regarding patient records, call [phone] during business hours, M-F 8:00 AM - 5:00 PM Central Time. Record requests for emergency care only can be directed to [phone] at any time.[facility] Allergies No known active allergies Medications [...] = 0.6 oz pur e alcohol) occasional [employer] Utilities Answer Date Recorded In the past 12 months has th e [employer], gas, oil, or water [employer] threatened to shut off services in your [...] Sex Assigned at Female 09/16/2023 8:08 PM BATCH RECORDS CLERK Gender Identity Female 09/16/2023 8:08 PM BATCH RECORDS CLERK Sexual Orientation Straight 09/16/2023 8: 08 PM BATCH RECORDS CLERK Last Filed Vital Signs Vital Sign Reading Time Taken Comments Blood Pressure 106/78 09/21/2023 8:20 AM BATCH RECORDS CLERK Pulse - - Temperature - - Respiratory Rate - - Oxygen Saturation - - Inhaled Oxygen Concentration - - Weight 66.9 kg (147 lb 7.8 oz) 09/21/2023 8:20 A M BATCH RECORDS CLERK Height 164 cm (5' 4.57) 07/28/2023 8:31 AM BATCH RECORDS CLERK Body Mass Index 24.87 07/28/2023 8:31 AM BATCH RECORDS CLERK Plan of Treatment Health Maintenance Due Date [...] SCREEN HPV REFLEX Routine 07/28/2023 10:08 AM BATCH RECORDS CLERK Pap Smear Examination from Last 3 Months or Most Recently Relevant to Health Maintenance Results * ThinPrep Screen HPV Reflex (07/28/2023 10:08 AM BATCH RECORDS CLERK) 08/02/2023 3:04 PM BATCH RECORDS CLERK [facility] Report electronically signed by LINNEA Swift (ASCP) I verify that I have examined all relevant slides/materials for the specimen(s) and rendered or confirmed the diagnosis. 08/02/2023 3:04 PM BATCH RECORDS CLERK [facility] Gross Description Received specimen in a ThinPrep vial. 08/02/2023 3:04 PM BATCH RECORDS CLERK [facility] Pap Test Source Cervical/Endocervi elizabeth 08/02/2023 3:04 PM BATCH RECORDS CLERK [facility] Clinical History routine 08/02/20 3:04 PM BATCH RECORDS CLERK [facility] Menstrual Status(LMP, PM, ) lmp 08/02/2023 3:04 PM BATCH RECORDS CLERK [facility] Hormone Therapy/Contracep tives None/Not known 08/02/2023 3:04 PM BATCH RECORDS CLERK [facility] Interpretation Cervical/Endocervi elizabeth ??(ThinPrep): Satisfactory for Evaluation Partially obscuring inflammation Negative for Intraepithelial Lesion or Malignancy 08/02/2023 3:04 PM BATCH RECORDS CLERK [facility] Thin Prep Vial (Cervix/Endocerv ix) 07/28/2023 10:08 AM BATCH RECORDS CLERK 07/29/2023 10:57 AM BATCH RECORDS CLERK Sushila Harp M.D. LAB PAP PATHDX ORDERABLES [facility] [address] [place] [address], [place] [facility] 10[address] [facility] [address] [place] [address] from Last 3 Months or Most Recently Relevant to Health Maintenance
== END 2024-03-23 16:02 | disposition home or self-care (01) ==
LOC: NFLDREF 03-30 08:17
PROVIDERS: Visit Provider Physician Assistant
DX: O03.9 Complete or unspecified spontaneous abortion without complication (principal)
CPT/HCPCS: 84702

== ENCOUNTER 2024-03-31 16:14 | Outpatient (CLI) | payer OTHER, SELFPAY ==
--- OUTSIDE RECORDS SUMMARY | 2024-04-02 10:09 | XMS_ITS | Clinical Summary ---
Author Organization [facility] Address [address] [place] [address] Care Team Providers Care Bill Clerk Name Role Phone Unavailable Primary Care Provider Unavailabl e Source Comments Patient records contain information from all sites at [facility]. For routine questions regarding patient records, call [phone] during business hours, M-F 8:00 AM - 5:00 PM Central Time. Record requests for emergency care only can be directed to [phone] at any time.[facility] Allergies No known active allergies Medications Medication [...] = 0.6 oz pur e alcohol) occasional [employer] Utilities Answer Date Recorded In the past 12 months has th e [employer], gas, oil, or water [employer] threatened to shut off services in your [...] your living situation today? I have a [facility] place to live 09/16/2023 Sex and Gender Information Value Date Recorded Sex Assigned at Female 09/16/2023 8:08 PM TANNING CONSULTANT Gender Identity Female 09/16/2023 8:08 PM TANNING CONSULTANT Sexual Orientation Straight 09/16/2023 8: 08 PM TANNING CONSULTANT Last Filed Vital Signs Vital Sign Reading Time Taken Comments Blood Pressure 106/78 09/21/2023 8:20 AM TANNING CONSULTANT Pulse - - Temperature - - Respiratory Rate - - Oxygen Saturation - - Inhaled Oxygen Concentration - - Weight 66.9 kg (147 lb 7.8 oz) 09/21/2023 8:20 A M TANNING CONSULTANT Height 164 cm (5' 4.57) 07/28/2023 8:31 AM TANNING CONSULTANT Body Mass Index 24.87 07/28/2023 8:31 AM TANNING CONSULTANT Plan of Treatment Health Maintenance Due Date [...] SCREEN HPV REFLEX Routine 07/28/2023 10:08 AM TANNING CONSULTANT Pap Smear Examination from Last 3 Months or Most Recently Relevant to Health Maintenance Results * ThinPrep Screen HPV Reflex (07/28/2023 10:08 AM TANNING CONSULTANT) 08/02/2023 3:04 PM TANNING CONSULTANT [facility] Report electronically signed by LINNEA Swift (ASCP) I verify that I have examined all relevant slides/materials for the specimen(s) and rendered or confirmed the diagnosis. 08/02/2023 3:04 PM TANNING CONSULTANT [facility] Gross Description Received specimen in a ThinPrep vial. 08/02/2023 3:04 PM TANNING CONSULTANT [facility] Pap Test Source Cervical/Endocervi elizabeth 08/02/2023 3:04 PM TANNING CONSULTANT [facility] Clinical History routine 08/02/20 3:04 PM TANNING CONSULTANT [facility] Menstrual Status(LMP, PM, ) lmp 08/02/2023 3:04 PM TANNING CONSULTANT [facility] Hormone Therapy/Contracep tives None/Not known 08/02/2023 3:04 PM TANNING CONSULTANT [facility] Interpretation Cervical/Endocervi elizabeth ??(ThinPrep): Satisfactory for Evaluation Partially obscuring inflammation Negative for Intraepithelial Lesion or Malignancy 08/02/2023 3:04 PM TANNING CONSULTANT [facility] Thin Prep Vial (Cervix/Endocerv ix) 07/28/2023 10:08 AM TANNING CONSULTANT 07/29/2023 10:57 AM TANNING CONSULTANT Sushila Harp M.D. LAB PAP PATHDX ORDERABLES [facility] [address] [place] [address], [place] [facility] [address] [facility] [address] [place] [id number] from Last 3 Months or Most Recently Relevant to Health Maintenance
--- OUTSIDE RECORDS SUMMARY | 2024-04-02 10:09 | XMS_ITS | Referral Summary ---
Author Organization [facility] Address [address] [place] [address] Care Team Providers Care Veterinary Pathologist Name Role Phone Unavailable Primary Care Provider Unavailabl e Source Comments Patient records contain information from all sites at [facility]. For routine questions regarding patient records, call [phone] during business hours, M-F 8:00 AM - 5:00 PM Central Time. Record requests for emergency care only can be directed to [phone] at any time.[facility] Allergies No known active allergies Medications [...] = 0.6 oz pur e alcohol) occasional [employer] Records Utilities Answer Date Recorded In the past 12 months has [employer], gas, oil, or water [employer] threatened to shut off services in your [...] your living situation today? I have a [facility] place to live 09/16/2023 Sex and Gender Information Value Date Recorded Sex Assigned at Female 09/16/2023 8:08 PM MEDICAL RECORDS COORDINATOR Gender Identity Female 09/16/2023 8:08 PM MEDICAL RECORDS COORDINATOR Sexual Orientation Straight 09/16/2023 8: 08 PM MEDICAL RECORDS COORDINATOR Last Filed Vital Signs Vital Sign Reading Time Taken Comments Blood Pressure 106/78 09/21/2023 8:20 AM MEDICAL RECORDS COORDINATOR Pulse - - Temperature - - Respiratory Rate - - Oxygen Saturation - - Inhaled Oxygen Concentration - - Weight 66.9 kg (147 lb 7.8 oz) 09/21/2023 8:20 A M MEDICAL RECORDS COORDINATOR Height 164 cm (5' 4.57) 07/28/2023 8:31 AM MEDICAL RECORDS COORDINATOR Body Mass Index 24.87 07/28/2023 8:31 AM MEDICAL RECORDS COORDINATOR Plan of Treatment Not on file Procedures Procedure Name Priority Date/Time Associated Diagnosis Comments THINPREP SCREEN HPV REFLEX Routine 07/28/2023 10:08 AM MEDICAL RECORDS COORDINATOR Pap Smear Examination from Last 3 Months or Most Recently Relevant to Health Maintenance Results * ThinPrep Screen HPV Reflex (07/28/2023 10:08 AM MEDICAL RECORDS COORDINATOR) 08/02/2023 3:04 PM MEDICAL RECORDS COORDINATOR [facility] Report electronically signed by LINNEA Swift (ASCP) I verify that I have examined all relevant slides/materials for the specimen(s) and rendered or confirmed the diagnosis. 08/02/2023 3:04 PM MEDICAL RECORDS COORDINATOR [facility] Gross Description Received specimen in a ThinPrep vial. 08/02/2023 3:04 PM MEDICAL RECORDS COORDINATOR [facility] Pap Test Source Cervical/Endocervi elizabeth 08/02/2023 3:04 PM MEDICAL RECORDS COORDINATOR [facility] Clinical History routine 08/02/20 3:04 PM MEDICAL RECORDS COORDINATOR [facility] Menstrual Status(LMP, PM, ) lmp 08/02/2023 3:04 PM MEDICAL RECORDS COORDINATOR [facility] Hormone Therapy/Contracep tives None/Not known 08/02/2023 3:04 PM MEDICAL RECORDS COORDINATOR [facility] Interpretation Cervical/Endocervi elizabeth ??(ThinPrep): Satisfactory for Evaluation Partially obscuring inflammation Negative for Intraepithelial Lesion or Malignancy 08/02/2023 3:04 PM MEDICAL RECORDS COORDINATOR [facility] Thin Prep Vial (Cervix/Endocerv ix) 07/28/2023 10:08 AM MEDICAL RECORDS COORDINATOR 07/29/2023 10:57 AM MEDICAL RECORDS COORDINATOR Sushila Harp M.D. LAB PAP PATHDX ORDERABLES Performing Organization Address City/State/[facility] Co de Phone Number [facility] [address] [place] [address], [facility] [address] [address] from Last 3 Months or Most Recently Relevant to Health Maintenance
--- OUTSIDE RECORDS SUMMARY | 2024-04-02 10:09 | XMS_ITS ---
Author Organization [facility] Address [address] [place] [address] Care Team Providers Care Intelligence Clerk Name Role Phone Unavailable Unavailable Unavailable Surgery Details Not on file Complications Check Surgery Details section. Procedure Estimated Blood Loss Check Surgery Details section. Procedure Findings Check Surgery Details section. Procedure Specimens Taken Check Surgery Details section.
== END 2024-03-31 16:15 | disposition home or self-care (01) ==
LOC: NFLDREF 04-02 10:07
PROVIDERS: Visit Provider Physician Assistant
DX: O03.9 Complete or unspecified spontaneous abortion without complication (principal)
CPT/HCPCS: 84702

== ENCOUNTER 2024-04-07 15:56 | Outpatient (CLI) | payer OTHER, SELFPAY ==
--- OUTSIDE RECORDS SUMMARY | 2024-04-09 08:57 | XMS_ITS ---
Author Organization [facility] Address [address] [place] [address] Care Team Providers Care Pulley Man Name Role Phone Unavailable Unavailable Unavailable Surgery Details Not on file Complications Check Surgery Details section. Procedure Estimated Blood Loss Check Surgery Details section. Procedure Findings Check Surgery Details section. Procedure Specimens Taken Check Surgery Details section.
--- OUTSIDE RECORDS SUMMARY | 2024-04-09 08:57 | XMS_ITS | Referral Summary ---
Author Organization [facility] Address [address] [place] [address] Care Team Providers Care Asl Interpreter Name Role Phone Unavailable Primary Care Provider Unavailabl e Source Comments Patient records contain information from all sites at [facility]. For routine questions regarding patient records, call [phone] during business hours, M-F 8:00 AM - 5:00 PM Central Time. Record requests for emergency care only can be directed to [phone] at any time.[facility] Allergies No known active allergies Medications Medication [...] = 0.6 oz pur e alcohol) occasional [employer] Utilities Answer Date Recorded In the past 12 months has [employer], gas, oil, or water [employer] threatened to shut off services in your [...] your living situation today? I have a [facility] place to live 09/16/2023 Sex and Gender Information Value Date Recorded Sex Assigned at Female 09/16/2023 8:08 PM DIAL PAINTER Gender Identity Female 09/16/2023 8:08 PM DIAL PAINTER Sexual Orientation Straight 09/16/2023 8: 08 PM DIAL PAINTER Last Filed Vital Signs Vital Sign Reading Time Taken Comments Blood Pressure 106/78 09/21/2023 8:20 AM DIAL PAINTER Pulse - - Temperature - - Respiratory Rate - - Oxygen Saturation - - Inhaled Oxygen Concentration - - Weight 66.9 kg (147 lb 7.8 oz) 09/21/2023 8:20 A M DIAL PAINTER Height 164 cm (5' 4.57) 07/28/2023 8:31 AM DIAL PAINTER Body Mass Index 24.87 07/28/2023 8:31 AM DIAL PAINTER Plan of Treatment Not on file Procedures Procedure Name Priority Date/Time Associated Diagnosis Comments THINPREP SCREEN HPV REFLEX Routine 07/28/2023 10:08 AM DIAL PAINTER Pap Smear Examination from Last 3 Months or Most Recently Relevant to Health Maintenance Results * ThinPrep Screen HPV Reflex (07/28/2023 10:08 AM DIAL PAINTER) 08/02/2023 3:04 PM DIAL PAINTER [facility] Report electronically signed by LINNEA Swift (ASCP) I verify that I have examined all relevant slides/materials for the specimen(s) and rendered or confirmed the diagnosis. 08/02/2023 3:04 PM DIAL PAINTER [facility] Gross Description Received specimen in a ThinPrep vial. 08/02/2023 3:04 PM DIAL PAINTER [facility] Pap Test Source Cervical/Endocervi elizabeth 08/02/2023 3:04 PM DIAL PAINTER [facility] Clinical History routine 08/02/20 3:04 PM DIAL PAINTER [facility] Menstrual Status(LMP, PM, ) lmp 08/02/2023 3:04 PM DIAL PAINTER [facility] Hormone Therapy/Contracep tives None/Not known 08/02/2023 3:04 PM DIAL PAINTER [facility] Interpretation Cervical/Endocervi elizabeth ??(ThinPrep): Satisfactory for Evaluation Partially obscuring inflammation Negative for Intraepithelial Lesion or Malignancy 08/02/2023 3:04 PM DIAL PAINTER [facility] Thin Prep Vial (Cervix/Endocerv ix) 07/28/2023 10:08 AM DIAL PAINTER 07/29/2023 10:57 AM DIAL PAINTER Sushila Harp M.D. LAB PAP PATHDX ORDERABLES Performing Organization Address City/State/[facility] Co de Phone Number [facility] [address] [place] [address], [facility] [address] [address] from Last 3 Months or Most Recently Relevant to Health Maintenance
--- OUTSIDE RECORDS SUMMARY | 2024-04-09 08:57 | XMS_ITS | Clinical Summary ---
Author Organization [facility] Address [address] [place] [address] Care Team Providers Care Mechanical Developer Prover Name Role Phone Unavailable Primary Care Provider Unavailabl e Source Comments Patient records contain information from all sites at [facility]. For routine questions regarding patient records, call [phone] during business hours, M-F 8:00 AM - 5:00 PM Central Time. Record requests for emergency care only can be directed to [phone] at any time.[facility] Allergies No known active allergies Medications [...] = 0.6 oz pur e alcohol) occasional [employer] Utilities Answer Date Recorded In the past 12 months has th e [employer], gas, oil, or water [employer] threatened to shut off services in your [...] Sex Assigned at Female 09/16/2023 8:08 PM HUMANITIES DEPARTMENT CHAIR Gender Identity Female 09/16/2023 8:08 PM HUMANITIES DEPARTMENT CHAIR Sexual Orientation Straight 09/16/2023 8: 08 PM HUMANITIES DEPARTMENT CHAIR Last Filed Vital Signs Vital Sign Reading Time Taken Comments Blood Pressure 106/78 09/21/2023 8:20 AM HUMANITIES DEPARTMENT CHAIR Pulse - - Temperature - - Respiratory Rate - - Oxygen Saturation - - Inhaled Oxygen Concentration - - Weight 66.9 kg (147 lb 7.8 oz) 09/21/2023 8:20 A M HUMANITIES DEPARTMENT CHAIR Height 164 cm (5' 4.57) 07/28/2023 8:31 AM HUMANITIES DEPARTMENT CHAIR Body Mass Index 24.87 07/28/2023 8:31 AM HUMANITIES DEPARTMENT CHAIR Plan of Treatment Health Maintenance Due Date [...] SCREEN HPV REFLEX Routine 07/28/2023 10:08 AM HUMANITIES DEPARTMENT CHAIR Pap Smear Examination from Last 3 Months or Most Recently Relevant to Health Maintenance Results * ThinPrep Screen HPV Reflex (07/28/2023 10:08 AM HUMANITIES DEPARTMENT CHAIR) 08/02/2023 3:04 PM HUMANITIES DEPARTMENT CHAIR [facility] Report electronically signed by LINNEA Swift (ASCP) I verify that I have examined all relevant slides/materials for the specimen(s) and rendered or confirmed the diagnosis. 08/02/2023 3:04 PM HUMANITIES DEPARTMENT CHAIR [facility] Gross Description Received specimen in a ThinPrep vial. 08/02/2023 3:04 PM HUMANITIES DEPARTMENT CHAIR [facility] Pap Test Source Cervical/Endocervi elizabeth 08/02/2023 3:04 PM HUMANITIES DEPARTMENT CHAIR [facility] Clinical History routine 08/02/20 3:04 PM HUMANITIES DEPARTMENT CHAIR [facility] Menstrual Status(LMP, PM, ) lmp 08/02/2023 3:04 PM HUMANITIES DEPARTMENT CHAIR [facility] Hormone Therapy/Contracep tives None/Not known 08/02/2023 3:04 PM HUMANITIES DEPARTMENT CHAIR [facility] Interpretation Cervical/Endocervi elizabeth ??(ThinPrep): Satisfactory for Evaluation Partially obscuring inflammation Negative for Intraepithelial Lesion or Malignancy 08/02/2023 3:04 PM HUMANITIES DEPARTMENT CHAIR [facility] Thin Prep Vial (Cervix/Endocerv ix) 07/28/2023 10:08 AM HUMANITIES DEPARTMENT CHAIR 07/29/2023 10:57 AM HUMANITIES DEPARTMENT CHAIR Sushila Harp M.D. LAB PAP PATHDX ORDERABLES [facility] [address] [place] [address], [place] [facility] [address] [facility] [address] [place] [id number] from Last 3 Months or Most Recently Relevant to Health Maintenance
== END 2024-04-07 15:57 | disposition home or self-care (01) ==
LOC: NFLDREF 04-09 08:56
PROVIDERS: Visit Provider Physician Assistant
DX: O03.9 Complete or unspecified spontaneous abortion without complication (principal)
CPT/HCPCS: 84702

== ENCOUNTER 2024-08-07 14:55 | Outpatient (CLI) | payer OTHER, SELFPAY | END 2024-08-07 14:56 | disposition home or self-care (01) | PROVIDERS: PCP Obstetrics & Gynecology; Visit Provider Obstetrics & Gynecology | DX: N96 Recurrent pregnancy loss (principal) | CPT/HCPCS: 84702; 86850 ==

== ENCOUNTER 2024-08-17 13:57 | Outpatient (CLI) | payer OTHER, SELFPAY | END 2024-08-17 13:58 | disposition home or self-care (01) | LOC: NFLDREF 08-19 12:20 | PROVIDERS: Visit Provider Obstetrics & Gynecology | DX: O20.9 Hemorrhage in early pregnancy, unspecified (principal) | CPT/HCPCS: 84702 ==

== ENCOUNTER 2024-08-23 13:40 | Outpatient (CLI) | payer OTHER, SELFPAY | END 2024-08-23 13:41 | disposition home or self-care (01) | PROVIDERS: Visit Provider Obstetrics & Gynecology | DX: N96 Recurrent pregnancy loss (principal) | CPT/HCPCS: 84439; 84443; 85610; 85613; 85730; 86146; 86147; 86376; 88262 ==

== ENCOUNTER 2024-12-01 11:31 | Outpatient (CLI) | payer OTHER, SELFPAY | END 2024-12-01 11:32 | disposition home or self-care (01) | LOC: NFLDREF 12-05 18:18 | PROVIDERS: Visit Provider Obstetrics & Gynecology | DX: O03.9 Complete or unspecified spontaneous abortion without complication (principal); N96 Recurrent pregnancy loss | CPT/HCPCS: 84702 ==

== ENCOUNTER 2025-03-15 09:00 | Outpatient (CLI) | payer OTHER, SELFPAY | END 2025-03-15 09:01 | disposition home or self-care (01) | LOC: NFLDREF 03-16 16:05 | PROVIDERS: Visit Provider Obstetrics & Gynecology | DX: N96 Recurrent pregnancy loss (principal) | CPT/HCPCS: 84702 ==

== ENCOUNTER 2025-03-19 17:11 | Outpatient (CLI) | payer OTHER, SELFPAY ==
--- NOTE | 2025-03-19 17:30 | CRLHL7_ITS ---
For Patients: As a result of the Century Cures Act, medical imaging exams and procedure reports are released immediately into your electronic medical record. You may view this report before your referring provider. If you have questions, please contact your health care provider. OB ULTRASOUND LESS THAN 14 WEEKS, 03/19/2025 CLINICAL HISTORY: Recurrent loss. TECHNIQUE: Real time marques scale imaging of the fetus was performed. Transvaginal imaging performed. COMPARISON: None. FINDINGS: Imaging: TV. LMP: 01/27/2025. PETER by LMP: 11/03/2025. GA: 7 weeks 2 days. CRL: N/A FHR: N/A Gest Sac: 1.1 cm, appears WNL. Yolk Sac: 2.5 mm, appears WNL. Right Ov: 4.9 x 2.1 x 2.6 cm. CL. Left Ov: 3.2 x 1.7 x 2.1 cm. IMPRESSION: 1. Intrauterine gestational sac is present measuring 1.1 cm, 5 weeks 6 days. Normal yolk sac. No pole. No ectopic . 2. Corpus luteal cyst right ovary. Moderate pelvic free fluid. Raúl Stevenson M.D. Diagnostic Radiologist [email or web address] Transcribed: 8:53 am DW/Dictated by: Raúl Stevenson MD @ 03/20/2025 7:19:00 AM (Electronically Signed)
== END 2025-03-19 17:12 | disposition home or self-care (01) ==
LOC: US 17:12
PROVIDERS: Visit Provider Obstetrics & Gynecology
DX: O09.291 Supervision of pregnancy with other poor reproductive or obstetric history, first trimester (principal); N96 Recurrent pregnancy loss; Z3A.01 Less than 8 weeks gestation of pregnancy
CPT/HCPCS: 76817

== ENCOUNTER 2025-04-02 15:41 | Outpatient (CLI) | payer OTHER, SELFPAY ==
--- NOTE | 2025-04-02 16:00 | CRLHL7_ITS ---
For Patients: As a result of the Cures Act, medical imaging exams and procedure reports are released immediately into your electronic medical record. You may view this report before your referring provider. If you have questions, please contact your health care provider. OB ULTRASOUND FIRST TRIMESTER TRANSVAGINAL INDICATION: Dating and viability. TECHNIQUE: Real time marques scale, color and M-mode Doppler imaging of the fetus was performed. Transvaginal imaging performed. LMP: 01/27/2025. PETER by LMP: 11/03/2025. GA: 9 w, 2 d. Previous US: Yes, -. PETER by US: -. GA: - w, - d. CRL: 1.4 cm. 7 w 5 d. PETER: 11/14/2025. FHR: 160 BPM. Gestational sac: 3.0 cm. Appears within normal limits. Yolk sac: 3.8 mm. Appears within normal limits. Right ovary: Within normal limits. 3.7 x 2.3 x 2.5 cm. Left ovary: Within normal limits. 3.0 x 2.0 x 1.6 cm. IMPRESSION: 1. Single viable intrauterine . 2. 7 week 5 day gestation by ultrasound measurements. Raghavendra Martinez M.D. Body/Diagnostic Radiologist [email or web address] SP/Dictated by: Raghavendra Martinez MD @ 04/04/2025 12:41:00 PM (Electronically Signed)
== END 2025-04-02 15:42 | disposition home or self-care (01) ==
LOC: US 15:42
PROVIDERS: Visit Provider Physician Assistant
DX: Z34.91 Encounter for supervision of normal pregnancy, unspecified, first trimester (principal); Z3A.09 9 weeks gestation of pregnancy
CPT/HCPCS: 76817; 83021; 86703; 86706; 86803; 86850; 87086; 87340

== ENCOUNTER 2025-04-02 18:39 | Outpatient (CLI) | payer OTHER, SELFPAY | END 2025-04-02 18:40 | disposition home or self-care (01) | PROVIDERS: Visit Provider Physician Assistant | DX: Z34.81 Encounter for supervision of other normal pregnancy, first trimester (principal) | CPT/HCPCS: 83020; 83021; 85660; 86592; 86703; 86704; 86706; 86762; 86787; 86803; 86850; 87086; 87340 ==

== ENCOUNTER 2025-06-25 15:43 | Outpatient (CLI) | payer OTHER, SELFPAY ==
--- NOTE | 2025-06-25 15:45 | CRLHL7_ITS ---
For Patients: As a result of the Century Cures Act, medical imaging exams and procedure reports are released immediately into your electronic medical record. You may view this report before your referring provider. If you have questions, please contact your health care provider. OBSTETRICAL ULTRASOUND ??? ANATOMY SURVEY INDICATION: Supervision of normal . anatomy survey. CLINICAL HISTORY: PETER by ultrasound: 11/14/2025 Gestational age: 19 weeks 5 days TECHNIQUE: Real-time marques-scale transabdominal imaging of the fetus was performed. PREVIOUS ULTRASOUND: 04/02/2025 FINDINGS: position: Vertex Cervix: Visualized Technique: Transabdominal Length of closed cervix: 3.7 cm Placenta position: Posterior Technique: Transabdominal Placenta tip to internal os: 4.4 cm Umbilical cord: 3-vessel cord Placental insertion: Central Amniotic fluid: 4.3 cm SDP (greater than/equal to 2 to less than 8 cm) ANATOMY SURVEY: Observed Structures Cerebellum: Yes Cisterna magna: Yes Nuchal fold: Yes Lateral ventricle: Yes CSP: Yes Midline falx: Yes Choroid plexus: Yes Spine: Yes Stomach: Yes Abdominal cord insert: Yes Urinary bladder: Yes Kidneys: Yes Diaphragm: Yes Nose/lips: Yes Orbital view: Yes Profile: Yes Upper extremities: Yes Lower extremities: Yes Hands: Yes Feet: Yes 4-chamber heart: Yes LVOT: Yes RVOT: Yes 3VV: Yes 3VTV: Yes BIOMETRY BPD: 4.4 cm, 19 weeks 2 days, 33.8% HC: 16.8 cm, 19 weeks 3 days, 30.1% AC: 14.7 cm, 20 weeks 0 days, 55.3% FL: 3.2 cm, 20 weeks 0 days, 51.8% FL/AC: 21.7% HC/AC ratio: 1.1 heart rate: 161 bpm age by this ultrasound: 19 weeks 6 days PETER by this ultrasound: 11/13/2025 Estimated weight: 321.0 grams (0 pounds 11 ounces) Percentile by PETER: 57.6% IMPRESSION: 1) Concordance of clinical and sonographic dating. 2) Normal anatomic survey. RAÚL WAGGONER M.D. Diagnostic Radiologist [employer] [email or web address] Transcribed: 9:[address]/Dictated by: Raúl Waggoner MD @ 06/26/2025 7:31:00 AM (Electronically Signed)
== END 2025-06-25 15:44 | disposition home or self-care (01) ==
LOC: US 15:43
PROVIDERS: Visit Provider Physician Assistant
DX: Z34.92 Encounter for supervision of normal pregnancy, unspecified, second trimester (principal); Z3A.19 19 weeks gestation of pregnancy
CPT/HCPCS: 76805

== ENCOUNTER 2025-07-08 11:20 | Outpatient (CLI) | payer OTHER, SELFPAY ==
[2025-07-08 12:01] LABS: Appearance Urine Clear (Clear)
[2025-07-08 12:24] LABS: Trichomonas No Trichomonas Seen (None Seen)
[2025-07-08 12:42] VITALS: BP 110/78; PULSE 84; RESP 16; TEMP 36.6
[2025-07-08 13:58] LABS: Bacterial Vaginosis* POSITIVE (Negative); Candida glab/krus NOT DETECTED (No Detected)
== END 2025-07-08 12:50 | disposition home or self-care (01) ==
LOC: OB OUT 11:21 → OB 11:22
PROVIDERS: Visit Provider Advanced Practice Midwife
DX: O46.92 Antepartum hemorrhage, unspecified, second trimester (principal)
CPT/HCPCS: 81001; 81003; 81513; 87086; 87210; 87481; 87661; G0463